=== PATIENT | male | born 1960 | race Caucasian/White ===

== ENCOUNTER 2016-09-10 18:43 | Inpatient (IN) | payer OTHER ==
[~2016-09-10] VITALS: Ht 185.4 cm; Wt 103.4 kg
[~2016-09-10 18:43] MED LIST: CARV12.52 PO; FENO160T14 PO; FLAX100010 PO; FURO-128 PO; HYDR-3825 PO; LISI10TA PO; MULT-666 PO; OMEP20TA86 PO; SIMV20TA4 PO; SPIR25TA3 PO; SYMINH INH; WARF5TAB7 PO; [UNRECOGNIZED DRUG - OTHER] PO
[2016-09-10 18:49] VITALS: BP 87/53; PULSE 145; RESP 27; O2SAT 99
--- NOTE | 2016-09-10 19:05 | ED.REPORT ---
HPI-Chest Pain 40 and Over Date of Service Sep 10, 2016 ED Provider: Moses Tolliver DO Pt is a 56 y.o. male with a hx of A-fib/flutter, ablation, CHF, and COPD who presents to the ED c/o palpitations onset 4 days ago. He reports associated bilateral leg swelling and worsening SOB. Pt had an ablation performed on for his chronic A-fib/flutter and reports that he has not been in A-fib since then. He had an echo performed by Dr. Montilla on 07/13/16 which reported a left ventricle ejection fraction estimated at 50-55%, which was improved compared to a prior exam. Pt is on Warfarin. Nursing Notes Stated Complaint: DIFFICULTY BREATHING, HEART FEELS OUT OF RHYTHM Chief Complaint: Chest Pain Nursing Notes Reviewed: Yes Allergies: Coded Allergies: No Known Allergies (Verified Allergy, Unknown, 03/26/16) Scheduled Ascorbic Acid (Vitamin C) 250 Mg Tab.chew 250 MG PO DAILY Atorvastatin (Lipitor) 20 Mg Tablet 20 MG PO HS Budesonide/Formoterol 160-4.5 mcg Inh (Symbicort 160-4.5 mcg Inh) 120 Puff Inhaler 2 PUFFS INH BID Carvedilol (Carvedilol) 12.5 Mg Tablet 18.75 MG PO BID Fenofibrate (Fenofibrate) 160 Mg Tablet 160 MG PO DAILYWD TAKES IN AM WORKS SCIENTIFIC ILLUSTRATOR Flaxseed Oil (Higden-3 Flaxseed Oil) 1,000 Mg Capsule 2,000 MG PO DAILYWM Furosemide (Lasix) 40 Mg Tablet 40 MG PO QAM TAKES IN PM WORKS SCIENTIFIC ILLUSTRATOR Lisinopril (Lisinopril) 10 Mg Tablet 10 MG PO BID Multivitamin (Once Daily) 1 Each Tablet 1 TAB PO DAILY Omeprazole (Omeprazole) 20 Mg Tablet.dr 20 MG PO QAM TAKES IN PM WORKS SCIENTIFIC ILLUSTRATOR Spironolactone (Spironolactone) 25 Mg Tablet 25 MG PO MORNING TAKES IN PM WORKS SCIENTIFIC ILLUSTRATOR Warfarin Sodium (Warfarin Sodium) 2.5 Mg Tablet 1.25 MG PO Mo,Th Warfarin Sodium (Warfarin Sodium) 2.5 Mg Tablet 2.5 MG PO Tu,We,Fr,Sa,Bruno General Time Seen by MD: 19:05 Chief Complaint Other (Palpitations) Hx Obtained From: Patient Arrived By: Walk-in Sudden in Onset?: Yes Onset Occurred: 4 days ago Symptom Duration: Since onset Severity: Current: No pain currently Past Medical History Past Medical History Notes: [employer]: [place] Past Medical History History of congestive heart failure with EF as low as 20% in May 2013, 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 Patient had marked echocardiographic improvement if improving to 45% subsequent to medical management History of atrial flutter/fibrillation chronic" with warfarin History of COPD History hyperlipidemia Reports: COPD, Congestive heart failure, Hypertension Past Surgical History Meniscus tear repaired Ablation Smoking History Current Every Day Smoker Social History Alcohol Use: "Social" Drug Use: Denies drug use Ambulatory Status Independent Review of Systems Constitutional: Denies: Chills, Fever Respiratory: Reports: Shortness of breath Cardiovascular: Reports: Palpitations, Denies: Chest pain GI: Denies: Nausea, Vomiting Musculoskeletal: Reports: Extremity swelling (Bilateral legs) Complete sys rev & neg: except as marked. Physical Exam Initial Vital Signs Vital Signs (First) Date Time Temp Pulse Resp B/P Pulse Ox O2 Delivery O2 Flow Rate FiO2 09/10/16 18:49 36.8 145 27 87/53 99 Room Air 09/10/16 21:08 2 Initial VS: Reviewed Head / Eyes: Atraumatic, Normocephalic Extremities: Vascular intact, Neuro intact Skin: Warm, Dry, No cyanosis Neurologic: Alert, Oriented, Nonfocal Psychiatric: Mood/affect normal, Behavior normal, Normal thought content General/Constitutional: Awake, Alert, No acute distress, Not toxic appearing Appearance / Presentation: Positive: Obese Respiratory / Chest: Atraumatic Tachypneic Heart Rate / Rhythm: Positive: Irreg irregular rhythm, Tachycardia Lower Ext Edema: Positive: Ankle, Knee, Pitting (Bilateral) Neck: Atraumatic, Supple, No JVD Interpretation & Diagnostics Lab Results Interpretation Result Diagram: 09/11/16 0428 09/11/16 0428 Test 09/10/16 19:05 09/10/16 20:05 Neutrophils (%) (Auto) 74.9% (40-74) Lymphocytes (%) (Auto) 15.9% (14-46) Monocytes (%) (Auto) 7.0% (4-12) Eosinophils (%) (Auto) 1.3% (0-5) Basophils (%) (Auto) 0.4% (0-3) Total Bilirubin 0.6mg/dL (0.0-1.2) Aspartate Amino Transf (AST/SGOT) 26U/L (0-50) Alanine Aminotransferase (ALT/SGPT) 42U/L (0-44) Alkaline Phosphatase 54U/L (25-150) Pro-B-Type Natriuretic Peptide 5021pg/mL (0-210) Total Protein 7.1g/dL (6.4-8.4) Albumin 3.9g/dL (3.4-5.0) Thyroid Stimulating Hormone (TSH) 1.270uIU/mL (0.450-4.500) Hold Wheeler Top Tube Received (Received) Hold Urine Received (Received) ECG Interpretation ECG Interpretation: Different from prior which showed sinus rhythm Persistant low voltage Time: 18:56 Interpreted by: ED physician Rhythm / Conduction: Atrial fib with RVR (rate of 157) X-Ray Chest Interpretation Chest Xray Interpretation: IMPRESSION: No acute pulmonary process. Dictated by: Jody Valdez M.D. on 09/10/2016 at 19:35 Approved by: Jody Valdez M.D. on 09/10/2016 at 19:35 Re-Eval/Medical Decision Med Decision/Clinical Course 56-year-old male history of atrial flutter status post ablation. He presents in A. fib with rapid ventricular response. He was having significant distress due to the dyspnea was causing. I also think that he was having an acute exacerbation of his chronic COPD. Either way he was given a neb treatment steroids. He was initiated with IV Cardizem his rate came down. Overall he looked and felt much better. He was anticoagulated however he thinks his symptoms been going on for 2 weeks and I cannot prove that his INR was therapeutic last week so therefore I do not feel that emergent cardioversion was indicated at this time. He will be admitted to the PCU for further care and disposition. Source of Hx: Old records Time of Eval: 19:32 Re-Evaluation/Progress Note: Evaluated last meal time as 1230 today. Time of Eval: 21:02 Patient Status: Condition improved Re-Evaluation/Progress Note: Pt rechecked. Pt is looking improved. Pt is experiencing dyspnea with faint expiratory wheezes consistant with his COPD. Discussed need for admit, pt understands and agrees with plan. Consultation : Referral / Consult Name: Sandip Barros MD Consulted With: Hospitalist Call Returned at: 21:03 Bookbinding Machine Operator: Will see patient, Agrees with eval, Agrees with plan, Accepts admit Note: Dicussed pt conditon, accepts admit Counseled Regarding: Diagnosis, Lab results, Need for admission Discharge & Departure Primary Impression: Atrial fibrillation with rapid ventricular response Additional Impression: COPD exacerbation Disposition: ADMITTED TO HOSPITAL Discharge Condition All VS Reviewed: Yes Condition: Improved Referrals: Lalit Rivas DO (PCP) Crit Care Except Billable Proc Time Spent: 30-74 minutes Services Performed: Patient management by me, Time spent at bedside, Reviewing test results, Reviewing imaging, Discussing patient care, Documentation in record, Time with fam/surrogate Scribe Attestation Portions of this note were transcribed by Nimo Sanchez. I, Dr. Tolliver personally performed the history, physical exam and medical decision-making; I reviewed and confirmed the accuracy of the information in the transcribed note. Signed by : Thanh Zimmer, 09/10/16 and 2102. copies to: Lalit Rivas DO; Inés Montilla MD; Jonnathan Sevilla MD, Todd P DO Sep 10, 2016 19:05 NIMO SANCHEZ Sep 10, 2016 19:38 Albumin 3.9g/dL (3.4-5.0) Hold Wheeler Top Tube Received (Received) Hold Urine Received (Received) ECG Interpretation ECG Interpretation: Different from prior which showed sinus rhythm Persistant low voltage Time: 18:56 Interpreted by: ED physician Rhythm / Conduction: Atrial fib with RVR (rate of 157) X-Ray Chest Interpretation Chest Xray Interpretation: IMPRESSION: No acute pulmonary process. Dictated by: Jody Valdez M.D. on 09/10/2016 at 19:35 Approved by: Jody Valdez M.D. on 09/10/2016 at 19:35 Re-Eval/Medical Decision Source of Hx: Old records Time of Eval: 19:32 Re-Evaluation/Progress Note: Evaluated last meal time as 1230 today. Time of Eval: 21:02 Patient Status: Condition improved Re-Evaluation/Progress Note: Pt rechecked. Pt is looking improved. Pt is experiencing dyspnea with faint expiratory wheezes consistant with his COPD. Discussed need for admit, pt understands and agrees with plan. Consultation : Referral / Consult Name: Sandip Barros MD Consulted With: Hospitalist Call Returned at: 21:03 Bookbinding Machine Operator: Will see patient, Agrees with eval, Agrees with plan, Accepts admit Note: Dicussed pt conditon, accepts admit Counseled Regarding: Diagnosis, Lab results, Need for admission Discharge & Departure Primary Impression: Atrial fibrillation with rapid ventricular response Additional Impression: COPD exacerbation Disposition: ADMITTED TO HOSPITAL Discharge Condition All VS Reviewed: Yes Condition: Improved Referrals: Lalit Rivas DO (PCP) Crit Care Except Billable Proc Time Spent: 30-74 minutes Services Performed: Patient management by me, Time spent at bedside, Reviewing test results, Reviewing imaging, Discussing patient care, Documentation in record, Time with fam/surrogate Scribe Attestation Portions of this note were transcribed by Nimo Sanchez. I, Dr. Tolliver personally performed the history, physical exam and medical decision-making; I reviewed and confirmed the accuracy of the information in the transcribed note. Signed by : Thanh Zimmer, 09/10/16 and 2103. copies to: Lalit Rivas DO; Inés Montilla MD; Jonnathan Sevilla MD, Todd P DO Sep 10, 2016 19:05 NIMO SANCHEZ Sep 10, 2016 19:38
[2016-09-10 19:22] LABS: BASOPHILS % (AUTO) 0.4 % (0-3); EOSINOPHILS % (AUTO) 1.3 % (0-5); Mean Corpuscular Hemoglobin 32.7 pg (27.0-35.0); Mean Corpuscular Volume 96.6 fL (81-100); NEUTROPHILS % (AUTO) 74.9 % (40-74); Platelet Count 190 bil/L (150-400)
[2016-09-10] MEDS ORDERED: Diltiazem 5 mg/mL 5 mL Inj IVPUSH ONE (19:35)
[2016-09-10] MEDS ORDERED: 0.9% Sodium Chloride 500 ML IV ONE (19:35)
--- NOTE | 2016-09-10 19:38 | DRSVH ---
PROCEDURE: X-RAY CHEST ONE VIEW, PORTABLE ([id number]) INDICATIONS: cp TECHNIQUE: One view of the chest was acquired. COMPARISON: [facility], CR, XR CHEST 1VW (PORTABLE), 03/13/2016, 23:31. FINDINGS: Surgical changes and devices: None. Lungs and pleura: No pleural effusions or pneumothorax. Lungs are clear. Mediastinum: Mediastinal contours appear normal. Heart size is normal. Bones and chest wall: No suspicious bony lesions. Overlying soft tissues appear unremarkable. IMPRESSION: No acute pulmonary process. Dictated by: Jody Valdez M.D. on 09/10/2016 at 19:35 Approved by: Jody Valdez M.D. on 09/10/2016 at 19:35
[2016-09-10 19:40] LABS: INR 3.45 ratio
[2016-09-10 19:44] LABS: Magnesium 1.4 mg/dL (1.6-2.6)
[2016-09-10] MEDS: Diltiazem Inj 125 MG in 0.9% Sodium Chloride 100 ML, Pharmacy To Mix 1 EA IV SCH (20:03)
[2016-09-10 20:10] LABS: TROPONIN T < 0.010 ug/L (0.0-0.011)
[2016-09-10] MEDS ORDERED: Albuterol-Ipratropium 3 mL Inhalation Solution NEB ONE (20:55)
[2016-09-10] MEDS ORDERED: Alum-Mag Hydrox-Simeth 30 mL Suspension PO PRN (21:05)
[2016-09-10] MEDS ORDERED: MethylprednisoLONE Sodium Succinate 62.5 mg/mL 2 mL Inj IVPUSH ONE (21:05)
[2016-09-10] MEDS ORDERED: Ondansetron 2 mg/mL 2 mL Inj IVPUSH PRN (21:05)
[2016-09-10] MEDS ORDERED: Polyethylene Glycol (PEG) 17 Gm Powder PO PRN (21:05)
[2016-09-10 21:08] VITALS: PULSE 98; RESP 14; O2SAT 93
[2016-09-10] MEDS ORDERED: ATOR20TA PO (22:04)
[2016-09-10] MEDS ORDERED: WARF2.5T82 PO (22:06)
[2016-09-10 22:07] VITALS: BP 115/80; PULSE 99; RESP 21; O2SAT 96
[2016-09-10 22:47] VITALS: BP 92/77; PULSE 101; O2SAT 94
[2016-09-10 22:55] VITALS: PULSE 97
--- NOTE | 2016-09-10 23:24 | PCM.HPMED ---
Subjective Date of Service Sep 10, 2016 Primary Provider: Admitting Physician: Primary Care Physician: Lawrence Garcia DO Attending Physician: Admit Status: From the Emergency Department, Full Admit, [facility] Telemetry Chief Complaint: Palpitations History of Present Illness: Vish Camarena is a 56 y.o. male with Chronic Atrial fibrillation s/p ablation, Chronic heart failure with systolic dysfunction and COPD (ongoing smoker) who presents to [facility] emergency department complaining of palpitations. Patient states the palpitations has been ongoing for a least a month but within the last 4 days gotten worse. Associated with bilateral ankle swelling and worsening dyspnea. He denies any coughing or orthopnea. Denies any chest pain. He also noticed general weakness and lack on energy. He is compliant with his medications including Coumadin. Pt had an ablation performed on 03/26/16 for his chronic A-fib/flutter and reports that he has not been doing fine since then. He continues to smoke on a daily basis but has been cutting down. Case discussed with Dr Tollievr, Cardizem drip was initiated with good effect. Plans to admit to continue rate control. No indications for electrical cardioversion. Review of Systems: Pertinent positives as noted in HPI. All other systems were reviewed and are negative Allergies Coded Allergies: No Known Allergies (Verified Allergy, Unknown, 03/26/16) Home Medications From Vish Mcgill [phone] 1960 09/05/2016 08:15 AM Page: 06/19 atorvastatin 20 mg tablet take 1 tablet by oral route every day Coreg 12.5 mg tablet take 1.5 tablet by oral route 2 times every day with food fenofibrate 160 mg tablet take 1 tablet by oral route every day flaxseed 1,000 mg capsule 2 capsules daily with meal furosemide 40 mg tablet TAKE ONE TABLET BY MOUTH EVERY DAY ZESTRIL 10 MG TABLET TAKE ONE TABLET BY MOUTH TWICE A DAY omeprazole 20 mg capsule,delayed release take 1 capsule by oral route every day before a meal spironolactone 25 mg tablet TAKE ONE TABLET BY MOUTH DAILY Supplements Imune Boost Vit C Supplements Multi Vit SYMBICORT 160-4.5 MCG INHALER INHALE TWO PUFFS BY MOUTH TWO TIMES A DAY IN THE MORNING AND EVENING warfarin 2.5 mg tablet take 0.5 tablet (1.25mg) Mondays and and 1 tablet (2.5mg) all other days of the week PMH Atrial fibrillation s/p Cardioversion Tricuspid regurgitation COPD Chronic heart failure with Cardiomyopathy EF 20-25% Psoriasis Nicotine dependence ongoing cigarette smoker GERD Hyperlipidemia . Surgical History Hip ORIF surgery Ablation procedure Family History Father has dementia, Parkinson and Hypertension Mother is Diabetic and Coronary artery disease Social History Hx Alcohol Use: No Hx Substance Use: No Hx Tobacco Use: Yes Smoking Status: Current Every Day Smoker Living Arrangement: with Family Exam Vital Signs Vital Sign - Last Date Time Temp Pulse Resp B/P Pulse Ox O2 Delivery O2 Flow Rate FiO2 09/10/16 18:49 36.8 145 27 87/53 99 Room Air Exam General: Alert, Oriented X3, Cooperative, No acute Distress Eyes: PERRLA, Scleral Anicteric Mouth: Mouth Normal, Mucous Membranes Moist/Teller Neck: Supple, no Thyromegaly, trachea central. Chest & Lungs: Clear to auscultation & percussion, No adventitious breath sounds, no crackles, no wheeze Cardiovascular: Normal S1, Normal S2, No Murmurs/Rubs/Gallops, Irregularly irregular rhythm, (No JVD, no peripheral edema) Pulses: Radial (present and equal), Dorsalis Pedi (present and equal) Abdomen: Soft, Non-tender, Non-distended, Normoactive bowel tones. Musculoskeletal: Unremarkable. Normal range of motion, no swollen or erythematous joints Extremities: some ankle edema bilaterally, no cyanosis, no clubbing. Skin: No rashes. Warm and dry, no erythematous areas Neurological: Grossly neurologically intact, Normal Speech, Sensation Intact Lymphatic: Lymph nodes Cervical and Axillary not palpable. Lab and Diagnostics Labs Laboratory Tests Test 09/10/16 19:05 09/10/16 20:05 White Blood Count 10.9th/mm3 (3.8-10.1) Red Blood Count 4.71mil/mm3 (4.40-5.80) Hemoglobin 15.4g/dL (13.8-17.2) Hematocrit 45.5% (41.0-50.0) Mean Corpuscular Volume 96.6fL (81-100) Mean Corpuscular Hemoglobin 32.7pg (27.0-35.0) Mean Corpuscular Hemoglobin Concent 33.8% (32.0-37.0) Red Cell Distribution Width 12.6% (12.3-15.4) Platelet Count 190bil/L (150-400) Neutrophils (%) (Auto) 74.9% (40-74) Lymphocytes (%) (Auto) 15.9% (14-46) Monocytes (%) (Auto) 7.0% (4-12) Eosinophils (%) (Auto) 1.3% (0-5) Basophils (%) (Auto) 0.4% (0-3) Prothrombin Time 37.9sec (8.1-12.5) Prothromb Time International Ratio 3.45ratio Sodium Level 138mEq/L (134-144) Potassium Level 4.0mEq/L (3.5-5.2) Chloride Level 97mEq/L (97-108) Carbon Dioxide Level 28mmol/L (18-29) Blood Urea Nitrogen 19mg/dL (6-24) Creatinine 1.01mg/dL (0.76-1.27) Estimat Glomerular Filtration Rate 81mL/min (>59) Glucose Level 149mg/dL (60-99) Calcium Level 9.2mg/dL (8.5-10.1) Magnesium Level 1.4mg/dL (1.6-2.6) Total Bilirubin 0.6mg/dL (0.0-1.2) Aspartate Amino Transf (AST/SGOT) 26U/L (0-50) Alanine Aminotransferase (ALT/SGPT) 42U/L (0-44) Alkaline Phosphatase 54U/L (25-150) Troponin T < 0.010ug/L (0.0-0.011) Pro-B-Type Natriuretic Peptide 5021pg/mL (0-210) Total Protein 7.1g/dL (6.4-8.4) Albumin 3.9g/dL (3.4-5.0) Hold Wheeler Top Tube Received (Received) Hold Urine Received (Received) Result Diagram: 09/10/[id number] X-Rays, CTs and MRIs X-RAY CHEST ONE VIEW, PORTABLE 09/10 IMPRESSION: No acute pulmonary process. Dictated by: Jody Valdez M.D. on 09/10/2016 at 19:35 Approved by: Jody Valdez M.D. on 09/10/2016 at 19:35 Assessment & Plan Vish Camarena is a 56 y.o. male with Chronic Atrial fibrillation s/p ablation, Chronic heart failure with systolic dysfunction and COPD (ongoing smoker) who presents to [facility] emergency department complaining of palpitations 1. Atrial fibrillation with rapid ventricular response with chronic anticoagulations. Present on admission Previously on Digoxin but was held as it was ineffective. Currently on Coreg for rate control. No history of thyroid problems and currently without any anginal symptoms. No prior Strokes with [id number] score 2 currently on Coumadin. - monitor on telemetry - continuing Cardizem drip for rate control - continuing Coreg PO, monitor for hypotension - Pharmacy to dose Coumadin (INR >3 will be held tonight) - checking TSH - I think Cardiology will need to be consulted in the morning to review medications 2. Chronic systolic Heart failure with Cardiomyopathy No evidence of fluid overload or decompensation. I think the ankle swelling does not represent failure - continuing Aldactone 25 mg daily and Furosemide 40 mg daily - complete echo requested to monitor any changes 3. Hypertension Presumed stable - continued Lisinopril 10 mg bid 4 Dyslipidemia Presumed stable - continue Atorvastatin 20 mg daily and Fenofibrate 5 GERD - Omeprazole 20 mg daily 6 Chronic Obstructive Pulmonary Disease - No acute exacerbation no coughing or sputum changes however still smokes on a daily basis - recommend yearly influenza vaccination - continue Symbicort 160/4.5 mcg inhaler 2 puffs bid - DuoNeb nebs as needed 7 Nicotine dependence with ongoing cigarette smoking cessation discussed and encouraged - Nicotine patch upon request - Acetaminophen as needed for mild pain/fever/headache - Bowel regimen as needed - Antiemetic as needed Patient admitted under inpatient status with expected length of stay > 2 midnights for severity of present symptoms, complexities of treatment plan and risk for adverse event . Resuscitation Status: CPR: Attempt Resuscitation Sandip Barros MD Sep 10, 2016 21:07
[2016-09-10] MEDS ORDERED: Mag Sulf 4 Gm/100 mL IV Premix (Mag < 1.6 & Creat < 2) IV ONE (23:45)
[2016-09-11] VITALS (17 sets, daily range): BP systolic 104–121; BP diastolic 64–81; PULSE 62–98; RESP 14–26; O2SAT 91–96
[2016-09-11] MEDS ORDERED: Heparin 5,000 Unit/mL Inj SUBQ SCH (00:30)
--- NOTE | 2016-09-11 00:43 | NUR ---
admit note pt to floor from ED quezem gtt running at 5mg/hr, able to transfer to standing scale then to bed, pt a little weak per his report but feels better then when he got here.pt denies any nausea, on 3L NC, mag 1.4 received order for mag rider jovi, taking medications home with her, orientated pt to call light, bed and room, pt voiding per urinal, tele AFIB/AFLUTTER rate 80-90s BP stable.
[2016-09-11 04:54] LABS: Mean Corpuscular Hemoglobin 32.6 pg (27.0-35.0); Mean Corpuscular Volume 96.9 fL (81-100)
[2016-09-11 05:11] LABS: INR 2.64 ratio
[2016-09-11 05:19] LABS: Magnesium 2.7 mg/dL (1.6-2.6)
--- NOTE | 2016-09-11 06:40 | NUR ---
tele pt on cardizem gtt at 5mg/hr rate while sleeping 70-80s with activity up to low 100s.
[2016-09-11] MEDS ORDERED: FLAX100038 PO (09:11)
[2016-09-11] MEDS ORDERED: WARF2.5T82 PO (09:13)
[2016-09-11] MEDS ORDERED: ASCO250T7 PO (09:21)
[2016-09-11] MEDS: Albuterol-Ipratropium 3 mL Inhalation Solution NEB PRN ×2 (09:42→20:50)
--- NOTE | 2016-09-11 11:05 | NUR ---
Social Work: Screening Data: Pt is a 56 y/o male admitted for AFIB with RVR, COPD exacerbation. Pt's PCP is Dr Garcia, pt's insurance is [employer]. EMR reviewed. Readmit score not listed. No d/c planning needs anticipated at this time. FILAMENT SHAPER will continue to follow if needs arise. Assessment: Pt who is independent at baseline. Plan: Pt will d/c home via POV when medically stable. No d/c planning needs anticipated at this time. FILAMENT SHAPER will continue to follow if needs arise. LEEROY Kenyon
[2016-09-11] MEDS: Diltiazem Inj 125 MG in 0.9% Sodium Chloride 100 ML, Pharmacy To Mix 1 EA IV SCH (12:11)
--- NOTE | 2016-09-11 12:27 | DRSVH ---
[facility] [address] [place] [address] Echocardiogram Report Name: MARCO ADEN EStudy Date : 09/11/2016 Height: 73 in Hospital Exam Location: [facility] Weight: 227 lb Gender: Male BSA: 2.3 m2 : 1960 Age: 56 yrs BP: 109/64 mmHg Reason For Study: Atrial fibrillation Ordering Physician: Performed By: Tena Long Referring Physician: Lawrence Garcia Interpretation Summary The left ventricle is normal in size. Left ventricular systolic function is mildly reduced. The ejection fraction is estimated to be 45-50%. There has been no significant change since the previous study. There is basal inferior wall akinesis. There is mid inferior wall hypokinesis. The right ventricle is normal in size and function. The right ventricular systolic pressure is estimated at 46 mmHg assuming a right atrial pressure of 15 mm Hg. Compared to the prior echo exam, there has been an increase in the severity of pulmonary hypertension. The left atrium is severely dilated. The right atrium is moderately dilated. There is no significant valvular heart disease. The aortic root is normal size. Procedure: A two-dimensional transthoracic echocardiogram with color flow and Doppler was performed. The study quality was technically good. Comparison is made with the echocardiogram of 07-13-16. The patient was in atrial fibrillation with heart rates between 96-101 bpm during the exam. Left Ventricle: The left ventricle is normal in size. Left ventricular wall thickness is at the upper limits of normal. Left ventricular systolic function is mildly reduced. The ejection fraction is estimated to be 45-50%. There has been no significant change since the previous study. There is basal inferior wall akinesis. There is mid inferior wall hypokinesis. Diastolic function could not be accurately assessed due to atrial fibrillation. Right Ventricle: The right ventricle is normal in size and function. Atria: The left atrium is severely dilated. The right atrium is moderately dilated. The interatrial septum is intact with no evidence for an atrial septal defect. Mitral Valve: The mitral valve leaflets appear mildly thickened, but open well. There is trace mitral regurgitation. Aortic Valve: The aortic valve opens well. There is trace aortic regurgitation. Tricuspid Valve: The tricuspid valve is normal in structure and function. There is mild tricuspid regurgitation. The right ventricular systolic pressure is estimated at 46 mmHg assuming a right atrial pressure of 15 mm Hg. Compared to the prior echo exam, there has been an increase in the severity of pulmonary hypertension. Pulmonic Valve: The pulmonic valve is not well seen, but is grossly normal. There is mild pulmonic regurgitation. There is no significant valvular heart disease. Great Vessels: The aortic root is normal size. The dimensions of the ascending aorta are normal. The IVC is dilated (diameter is greater than 2.1 cm) and it collapses less than 50% with a sniff. This suggests a high right atrial pressure of 15 mm Hg. Pericardium/ Pleura There is no pericardial effusion. There is no pleural effusion. MMode/2D Measurements & Calculations LVIDd: 5.1 cm LA dimension: 4.8 cm RA long axis: 5.9 cm Ao root diam LVIDs: 4.3 cm FS: 16.7 % LA A2 area: 36.1 cm RA area: 26.5 cm Aortic Jxn: 3.0 cm IVSd: 1.1 cm LA A4 area: 29.0 cm RA vol: 100.6 ml asc Aorta Diam LVPWd: 1.1 cm LA length (vol) RA : 44.3 ml/m RVDd major: 5.7 cm Ao Arch Diam (Prox LA vol: 146.6 ml Trans): 3.0 cm LA vol index IVC diam: 2.6 cm EDV(MOD-sp2) LV burr. diameter/BSA LV sys. diameter/BSA RVD1 (basal) : 100.8 ml (cm/m^2): 2.3 (cm/m^2): 1.9 : 4.5 cm RVD2 (mid) : 4.3 cm Doppler Measurements & Calculations Ao V2 max MV P1/2t: 62.9 msec Med Peak E' Hai TR max hai : 114.4 cm/sec : 262.7 cm/sec Ao max PG Lat Peak E' Hai TR max PG : 5.2 mmHg : 27.6 mmHg Ao mean PG PA V2 max : 3.0 mmHg : 89.9 cm/sec PA mean PG PA Accel Time : 0.09 sec MV V2 mean MV P1/2t max hai Ao V2 mean PA V2 mean : 58.3 cm/sec : 81.5 cm/sec : 63.0 cm/sec MV mean PG Ao V2 VTI: 22.6 cm MVA(P1/2t): 3.5 cm2 MV V2 VTI : 16.9 cm Reading Physician:HAYDER
--- NOTE | 2016-09-11 13:21 | CONS ---
[address] [address] CONSULTATION REPORT PATIENT: MARCO ADEN : 1960 MR#: [id number] ADMIT: 09/10/2016 JOB ID: [id number] DATE OF SERVICE: 09/11/2016 REQUESTING PHYSICIAN: Tomas Bowie MD REASON FOR EVALUATION: Atrial flutter. HISTORY: The patient is a 56-year-old male with history of COPD, hypertension, and hyperlipidemia. He has recurrent atrial flutter requiring multiple emergency department visits and cardioversion with consequent tachycardia mediated cardiomyopathy. He underwent atrial flutter ablation on March 26, 2016. The patient was in his usual state of health until three weeks ago when he started not feeling well. He became short of breath in the past three days. He has lack of energy and general weakness. He denies any fever, cough, orthopnea, or PND. PAST MEDICAL HISTORY: 1. COPD. 2. Hypertension. 3. Hypercholesterolemia. 4. Gastroesophageal reflux disease. PAST SURGICAL HISTORY: Right hip surgery. HOME MEDICATIONS: 1. Warfarin. 2. Atorvastatin 20 mg daily. 3. Carvedilol 12.5 mg 1.5 tablets b.i.d. 4. Fenofibrate 160 mg daily. 5. Furosemide 40 mg daily. 6. Lisinopril 10 mg b.i.d. 7. Omeprazole 20 mg daily. 8. Spironolactone 25 mg daily. 9. Symbicort 2 puffs b.i.d. SOCIAL HISTORY: He started smoking when he was 17 years old. He smoked up to one pack per day in the past. He currently smokes about five cigarettes per day. He quit drinking a while ago. FAMILY HISTORY: His mother is diabetic and has heart condition. His father has dementia, Parkinson's, and hypertension. REVIEW OF SYSTEMS: All 10 systems are reviewed and noncontributory. PHYSICAL EXAMINATION: Reveals a pleasant, middle-aged male appearing in no acute distress. Temperature is 36.7. Blood pressure is 104/71. Pulse 98. Body weight is 106 kg. Head and face have normal configuration. Nonicteric sclerae. Moist mucosa. Neck supple. No jugular venous distention or carotid bruits. Chest: Normal expansion. Lungs are clear to auscultation. Heart: The first heart sound is variable. Second heart sound is normal. No murmur. Abdomen: Soft, nontender and without hepatosplenomegaly. Back: No CVA tenderness. Extremities: No clubbing, cyanosis, or edema. Peripheral pulses are equal bilaterally. Neurologic: Grossly intact. DIAGNOSTIC DATA: Tele monitor showed atrial flutter with rapid ventricular response. Blood tests show hemoglobin 14.7, WBC 8.9, platelet 182. Sodium 140, potassium 4.4, chloride 99, bicarb 25, BUN 18, creatinine 0.98, glucose 192. Troponin T less than 0.01. TSH 1.27. IMPRESSION: 1. Recurrent atrial flutter with uncontrolled ventricular response. 2. Status post atrial flutter ablation on March 26, 2016. 3. History of tachycardia-mediated cardiomyopathy. 4. Chronic obstructive pulmonary disease. 5. Nicotine addiction. 6. Hypertension. 7. Hypercholesterolemia. PLAN: In view of this is the first episode of recurrent atrial flutter since the atrial flutter ablation, I will perform synchronous cardioversion. The risks and benefits of procedure have been explained to the patient. He understands and agrees to proceed with the procedure. After he returns to sinus rhythm, the patient will follow with Dr. Sanchez as an outpatient. The patient has therapeutic INR. MTDD
--- NOTE | 2016-09-11 13:52 | PCM.PHAPRO ---
Progress Date of Service: Sep 11, 2016 Palpitations INR = 2.64, HCT = 43.7, PLTS 182. Pt continues on warfarin therapy for afib, goal INR 2-3. Will give warfarin 2.5 mg PO tonight, pt's home dose. INRs ordered. Pharmacy will follow this pt' s warfarin therapy. Sep 11-Aug 3.45 2.64 -0.81 UNK 2.5 MG Y Y Delores Torres PharmD Sep 11, 2016 13:52
--- NOTE | 2016-09-11 15:23 | NUR ---
Cardioversion Pt. was transferred in a WC to [facility] at 1523 for cardioversion. His was aware of the procedure. Informed consent was signed and placed in chart. bioinformatics research technician was notified. Report given to [facility] nurse, Juan Jose Abbott RN. Addendum: 09/11/16 at 1720 by MARIA GUADALUPE BLAKELY RN Pt. transferred back to [facility] at 1710. He was alert and oriented on arrival. Telemetry monitoring resumed. Pt. in SR and HR 70s. He denied discomfort except for mild skin irritation (redness noted) on his chest from the cardioversion patch. Call light was placed within reach.
[2016-09-11] MEDS ORDERED: Methohexital 10 mg/mL 50 mL Inj ONE (15:39)
[2016-09-11] MEDS ORDERED: Furosemide 10 mg/mL 2 mL Inj IVPUSH ONE (16:40)
--- NOTE | 2016-09-11 16:49 | PCM.PNMED ---
Subjective Date of Service Sep 11, 2016 Subjective 56 y.o. male with Chronic Atrial fibrillation s/p ablation, Chronic heart failure with systolic dysfunction and COPD (ongoing smoker) who presents to [facility] emergency department complaining of palpitations, dyspnea and increased pedal edema. Today he states he feels somewhat better. Rate is now well controlled. Breathing still seems labored. Exam Vital Signs Vital Sign - Last Date Time Temp Pulse Resp B/P Pulse Ox O2 Delivery O2 Flow Rate FiO2 09/11/16 16:20 68 16 112/73 92 Nasal Cannula 4.00 09/11/16 12:30 36.7 Intake and Output 09/10/16 09/10/16 09/11/16 Cumulative From/Thru 15:00 23:00 07:00 09/10/16 18:49 - 09/11/16 06:15 Intake Total 500 ml 1445 ml 1945 ml Balance 500 ml 1445 ml 1945 ml Intake Oral 650 ml 650 ml IV Total 500 ml 795 ml 1295 ml Exam General: Middle-aged man mild tachypnea but no acute distress HEENT: sclerae anicteric, oral mucosa moist Neck: JVD approximately 4 cm Chest: Bibasilar crackles, no wheezes Cardiac: S1S2, irregular, no murmur Abdomen: BS normal, non-tender Extremities: 1+ edema Neuro: A&O, cranial nerves symmetric, motor strength and coordination normal IVs and Medications Medications Reviewed: Medications were reviewed in detail Lab and Diagnostics Result Diagram: 09/11/1642709/11/16427 X-Rays, CTs and MRIs PROCEDURE: X-RAY CHEST ONE VIEW, PORTABLE ([id number]) IMPRESSION: No acute pulmonary process. Dictated by: Jody Valdez M.D. on 09/10/2016 at 19:35 . 12-lead ECG 09/10/16 18:43 atrial fib flutter rate 140. No acute ischemic changes. Cardiac Echo Impressions Echocardiogram Report Name: VISH ADEN Study Date : 09/11/2016 Interpretation Summary The left ventricle is normal in size. Left ventricular systolic function is mildly reduced. The ejection fraction is estimated to be 45-50%. There has been no significant change since the previous study. There is basal inferior wall akinesis. There is mid inferior wall hypokinesis. The right ventricle is normal in size and function. The right ventricular systolic pressure is estimated at 46 mmHg assuming a right atrial pressure of 15 mm Hg. Compared to the prior echo exam, there has been an increase in the severity of pulmonary hypertension. The left atrium is severely dilated. The right atrium is moderately dilated. There is no significant valvular heart disease. The aortic root is normal size. . Assessment & Plan Vish Aden is a 56 y.o. male with Chronic Atrial fibrillation s/p ablation, Chronic heart failure with systolic dysfunction and COPD (ongoing smoker) who presents to [facility] emergency department complaining of palpitations Acute and/or high-risk problems: #. Atrial fibrillation with rapid ventricular response. Present on admission Previously on Digoxin but was held as it was ineffective. Currently on Coreg for rate control. [id number] score 2 currently on Coumadin. - monitor on telemetry - continuing Coreg PO, - Discontinue Cardizem drip for rate control - Cardiology consult to perform cardioversion this afternoon. #. Atrial fibrillation with anticoagulation excess. INR 3.45 on admission. - Pharmacy to dose Coumadin #. Acute on Chronic systolic Heart failure with Cardiomyopathy. Initially well oxygenated 99% on room air in emergency department. Now requiring 4 L nasal cannula with O2 saturations 91-92%. Pulmonary exam with bibasilar crackles and increased O2 requirement suggests acute diastolic heart failure related to atrial fibrillation. - Intravenous Lasix to achieve 2 L net diuresis -Then continue Aldactone 25 mg daily and Furosemide 40 mg daily # Chronic Obstructive Pulmonary Disease. No acute exacerbation no coughing or sputum changes however still smokes on a daily basis. - recommend yearly influenza vaccination - continue Symbicort 160/4.5 mcg inhaler 2 puffs bid - DuoNeb nebs as needed # SIRS due to Acute respiratory failure with hypoxia. Respiratory rate 27, heart rate 145, blood pressure 87/53 on admission. Subsequently with oxygen deficit. Likely multifactorial COPD and acute diastolic CHF with mild chronic systolic CHF. No evidence for acute infection or sepsis. - Treat heart failure and A. fib rate control - Continue oxygen support as needed - Telemetry monitoring Resolving, stable and/or chronic problems: #. Hypertension Presumed stable - continued Lisinopril 10 mg bid # Dyslipidemia Presumed stable - continue Atorvastatin 20 mg daily and Fenofibrate # GERD - Omeprazole 20 mg daily # Nicotine dependence with ongoing cigarette smoking cessation discussed and encouraged - Nicotine patch upon request - Acetaminophen as needed for mild pain/fever/headache - Bowel regimen as needed - Antiemetic as needed Patient admitted under inpatient status with expected length of stay > 2 midnights for atrial fibrillation rate control and treatment of acute diastolic congestive heart failure with hypoxia. Expect 1-2 days for rate control and diuresis. Plan to discharge home when oxygen deficit is resolved. . VTE Mechanical Devices: Intermittant Pneumatic CD Resuscitation Status: CPR: Attempt Resuscitation Time spent 40 minutes spent in patient assessment care coordination including review of ECG , chest x-ray and discussing data with financial services consultant. Tomas Bowie MD Sep 11, 2016 16:49
--- NOTE | 2016-09-11 17:20 | NUR ---
Pt transferred to [facility] room 2012, VSS, in NSR. Report and pt handoff given to Alison ANDERSON.
[2016-09-12 00:04] VITALS: BP 125/71; PULSE 85; RESP 22; O2SAT 94
[2016-09-12 03:29] VITALS: BP 117/70; PULSE 83; RESP 22; O2SAT 93
[2016-09-12 04:42] LABS: INR 2.38 ratio
--- NOTE | 2016-09-12 06:15 | NUR ---
HR post cardioversion pt has remained in SR mostly 70s, pt started on PO lopressor last night HR and BP tolerating. pt stating he is feeling good. denies any pain
[2016-09-12 07:30] VITALS: PULSE 82
[2016-09-12] MEDS ORDERED: Furosemide 10 mg/mL 4 mL Inj IVPUSH ONE (07:50)
[2016-09-12 08:03] VITALS: BP 121/77; PULSE 87; RESP 16; O2SAT 93
[2016-09-12 08:23] VITALS: PULSE 88; RESP 22; O2SAT 92
[2016-09-12] MEDS: Albuterol-Ipratropium 3 mL Inhalation Solution NEB PRN (08:23)
--- NOTE | 2016-09-12 09:03 | PCM.DICHF ---
CHF Discharge Instructions Date of Service: Sep 12, 2016 Dates of Hospitalization Date of Hospital Admission Sep 10, 2016 at 21:56 Date of Discharge: Sep 12, 2016 Providers Admitting Physician: Sandip Barros MD Primary Care Physician: Lawrence Garcia DO Attending Physician: Sandip Barros MD Diagnosis at Time of Discharge Diagnosis at time of discharge Atrial fibrillation with rapid ventricular response; acute diastolic congestive heart failure; COPD Problems: Labs Ejection Fraction Laboratory Tests Test Range/Units 09/10/16 19:05 09/11/16 04:28 09/11/16 20:10 Total Bilirubin 0.0-1.2 mg/dL 0.6 Aspartate Amino Transf (AST/SGOT) 0-50 U/L 26 Alanine Aminotransferase (ALT/SGPT) 0-44 U/L 42 Alkaline Phosphatase 25-150 U/L 54 Pro-B-Type Natriuretic Peptide 0-210 pg/mL 5021 Total Protein 6.4-8.4 g/dL 7.1 Albumin 3.4-5.0 g/dL 3.9 Thyroid Stimulating Hormone (TSH) 0.450-4.500 uIU/mL 1.270 Hold Wheeler Top Tube Received Received Sodium Level 134-144 mEq/L 140 Potassium Level 3.5-5.2 mEq/L 4.4 Chloride Level 97-108 mEq/L 99 Carbon Dioxide Level 18-29 mmol/L 25 Blood Urea Nitrogen 6-24 mg/dL 18 Creatinine 0.76-1.27 mg/dL 0.96 Estimat Glomerular Filtration Rate >59 mL/min 86 Glucose Level 60-99 mg/dL 192 Calcium Level 8.5-10.1 mg/dL 8.7 Magnesium Level 1.6-2.6 mg/dL 2.7 Troponin T 0.0-0.011 ug/L < 0.010 Discharge Medications Other Medication Instructions You have received instructions on the medications your physician has prescribed at discharge. A list of these medications has been provided to you. Keep this and a list of all current medications with you. Keep the dates when you received the Flu and Pneumococcal (Pneumonia) Vaccines. Last known date of receiving Flu Vaccine CARPENTRY SPECIALIST Last known date of receiving Pneumococcal (Pneumonia) Vaccine fall 2015 Diet CHF Discharge Diet: Low fat, Low Sodium Diet Instructions CHF Low Salt diet ( 2 grams or less sodium/day) Choose foods and drinks with low or no salt. Remove salt shaker from the table. Read Nutritional Facts labels. Weight Monitoring 1. Weigh yourself every day at the same time and write it down. 2. Take your weight log to your doctor visits. 3. Call your doctor if you gain 3-5 pounds over 2-3 days. 4. Your weight today is 227.96 lbs. Additional Instructions CHF Teaching Packet given and: No Smoking--Tobacco Use If you smoke, you are strongly encouraged to stop. If you have recently quit smoking, CONGRATULATIONS. For further information to stop smoking or to remain smoke-free, Follow Up Plan Follow Up Plan Contact Dr. Sanchez's office for a post-hospitalization follow-up appointment within 1-2 weeks. Cardiology Follow-up Provider: 1 week Report or call your Doctor REPORT TO YOUR DOCTOR OR SEEK MEDICAL ATTENTION: *Shortness of breath or have more difficulty breathing. *Swelling of your feet, ankles, hands or abdomen. *Feeling tired with normal activity or experiencing dizziness or fainting. *Trouble sleeping or waking up feeling short of breath or coughing. *Chest pain or pressure. *Weight gain of 3-5 pounds over 2-3 days. *Inability to take medications or follow treatment plan Heart Attach warning signs HEART ATTACK WARNING SIGNS * Chest discomfort. *Discomfort or pain in one or both arms, back, neck, jaw or stomach. *Shortness of breath. *Breaking out in a cold sweat, nausea, or lightheadedness. If you're having heart attack warning signs: CALL . DON'T WAIT MORE THAN A FEW MINUTES - 5 MINUTES AT MOST - TO CALL . Tomas Bowie MD Sep 12, 2016 09:03
[2016-09-12 10:38] VITALS: PULSE 89
--- NOTE | 2016-09-12 14:37 | NUR ---
Discharge He discharged about 1205 with all his belongings. He was taken via wheelchair by the ammunition and explosives handler to a friend's care who came to pick him up and drive home. The discharge paperwork was discussed with and given to him (MD/nurse instructions, care notes, work note). His questions and concerns were addressed. The IV and telemetry were discontinued intact.
--- NOTE | 2016-09-12 18:37 | PCM.DC.MED ---
Discharge Summary Date of Service Sep 12, 2016 Dates of Hospitalization Date of Hospital Admission Sep 10, 2016 at 21:56 Date of Discharge: Sep 12, 2016 Providers: Admitting Physician: Sandip Barros MD Primary Care Physician: Lawrence Garcia DO Attending Physician: Sandip Barros MD Diagnosis at Time of Discharge Diagnosis at Time of Discharge Atrial fibrillation with rapid ventricular response; acute diastolic congestive heart failure; COPD Procedures XRay, CTs & MRIs PROCEDURE: X-RAY CHEST ONE VIEW, PORTABLE ([id number]) IMPRESSION: No acute pulmonary process. Dictated by: Jody Valdez M.D. on 09/10/2016 at 19:35 . ECG 12 Lead 09/10/16 18:43 atrial fib flutter rate 140. No acute ischemic changes. Cardiac Echo Impression Echocardiogram Report Name: MARCO ADEN Study Date : 09/11/2016 Interpretation Summary The left ventricle is normal in size. Left ventricular systolic function is mildly reduced. The ejection fraction is estimated to be 45-50%. There has been no significant change since the previous study. There is basal inferior wall akinesis. There is mid inferior wall hypokinesis. The right ventricle is normal in size and function. The right ventricular systolic pressure is estimated at 46 mmHg assuming a right atrial pressure of 15 mm Hg. Compared to the prior echo exam, there has been an increase in the severity of pulmonary hypertension. The left atrium is severely dilated. The right atrium is moderately dilated. There is no significant valvular heart disease. The aortic root is normal size. . Brief History History of Present Illness (per admission note): Marco Aden is a 56 y.o. male with Chronic Atrial fibrillation s/p ablation, Chronic heart failure with systolic dysfunction and COPD (ongoing smoker) who presents to [facility] emergency department complaining of palpitations. Patient states the palpitations has been ongoing for a least a month but within the last 4 days gotten worse. Associated with bilateral ankle swelling and worsening dyspnea. He denies any coughing or orthopnea. Denies any chest pain. He also noticed general weakness and lack on energy. He is compliant with his medications including Coumadin. Pt had an ablation performed on 03/26/16 for his chronic A-fib/flutter and reports that he has not been doing fine since then. He continues to smoke on a daily basis but has been cutting down. Hospital Course #. Atrial fibrillation with rapid ventricular response. Present on admission Previously on Digoxin but was held as it was ineffective. Currently on Coreg for rate control. [id number] score 2 currently on Coumadin. - continuing Coreg PO, he received Cardizem drip for rate control - Cardiology consult performed cardioversion excessively. #. Atrial fibrillation with anticoagulation excess. INR 3.45 on admission. - Resume outpatient warfarin usual dose - Follow-up INR within 1 week #. Acute on Chronic systolic Heart failure with Cardiomyopathy. Initially well oxygenated 99% on room air in emergency department. Now requiring 4 L nasal cannula with O2 saturations 91-92%. Pulmonary exam with bibasilar crackles and increased O2 requirement suggests acute diastolic heart failure related to atrial fibrillation. - He received Intravenous Lasix to achieve 2 L net diuresis -Then continue Aldactone 25 mg daily and Furosemide 40 mg daily # Chronic Obstructive Pulmonary Disease. No acute exacerbation no coughing or sputum changes however still smokes on a daily basis. - recommend yearly influenza vaccination - continue Symbicort 160/4.5 mcg inhaler 2 puffs bid # SIRS due to Acute respiratory failure with hypoxia. Respiratory rate 27, heart rate 145, blood pressure 87/53 on admission. Subsequently with oxygen deficit. Likely multifactorial COPD and acute diastolic CHF with mild chronic systolic CHF. No evidence for acute infection or sepsis. - Treat heart failure and A. fib rate control #. Hypertension Presumed stable - continued Lisinopril 10 mg bid # Dyslipidemia Presumed stable - continue Atorvastatin 20 mg daily and Fenofibrate # GERD - Received Omeprazole 20 mg daily # Nicotine dependence with ongoing cigarette smoking cessation discussed and encouraged Exam Vital Signs (Last) Date Time Temp Pulse Resp B/P Pulse Ox O2 Delivery O2 Flow Rate FiO2 09/12/16 08:23 88 22 92 Room Air 09/12/16 08:03 36.5 121/77 09/11/16 16:20 4.00 Exam General: Middle-aged man in no acute distress HEENT: sclerae anicteric, oral mucosa moist Neck: JVD approximately 4 cm Chest: Bibasilar crackles, no wheezes Cardiac: S1S2, irregular, no murmur Abdomen: BS normal, non-tender Extremities: 1+ edema Neuro: A&O, cranial nerves symmetric, motor strength and coordination normal Test 09/10/16 19:05 09/10/16 20:05 09/11/16 04:28 09/11/16 20:10 Neutrophils (%) (Auto) 74.9% (40-74) Lymphocytes (%) (Auto) 15.9% (14-46) Monocytes (%) (Auto) 7.0% (4-12) Eosinophils (%) (Auto) 1.3% (0-5) Basophils (%) (Auto) 0.4% (0-3) Total Bilirubin 0.6mg/dL (0.0-1.2) Aspartate Amino Transf (AST/SGOT) 26U/L (0-50) Alanine Aminotransferase (ALT/SGPT) 42U/L (0-44) Alkaline Phosphatase 54U/L (25-150) Pro-B-Type Natriuretic Peptide 5021pg/mL (0-210) Total Protein 7.1g/dL (6.4-8.4) Albumin 3.9g/dL (3.4-5.0) Thyroid Stimulating Hormone (TSH) 1.270uIU/mL (0.450-4.500) Hold Wheeler Top Tube Received (Received) Hold Urine Received (Received) White Blood Count 8.9th/mm3 (3.8-10.1) Red Blood Count 4.51mil/mm3 (4.40-5.80) Hemoglobin 14.7g/dL (13.8-17.2) Hematocrit 43.7% (41.0-50.0) Mean Corpuscular Volume 96.9fL (81-100) Mean Corpuscular Hemoglobin 32.6pg (27.0-35.0) Mean Corpuscular Hemoglobin Concent 33.6% (32.0-37.0) Red Cell Distribution Width 12.6% (12.3-15.4) Platelet Count 182bil/L (150-400) Sodium Level 140mEq/L (134-144) Potassium Level 4.4mEq/L (3.5-5.2) Chloride Level 99mEq/L (97-108) Carbon Dioxide Level 25mmol/L (18-29) Blood Urea Nitrogen 18mg/dL (6-24) Creatinine 0.96mg/dL (0.76-1.27) Estimat Glomerular Filtration Rate 86mL/min (>59) Glucose Level 192mg/dL (60-99) Calcium Level 8.7mg/dL (8.5-10.1) Magnesium Level 2.7mg/dL (1.6-2.6) Troponin T < 0.010ug/L (0.0-0.011) Test 09/12/16 03:58 Prothrombin Time 25.9sec (8.1-12.5) Prothromb Time International Ratio 2.38ratio Discharge Medications Discharge Medications Ascorbic Acid (Vitamin C) 250 Mg Tab.chew 250 MG PO DAILY (Reported) Atorvastatin (Lipitor) 20 Mg Tablet 20 MG PO HS (Reported) Budesonide/Formoterol 160-4.5 mcg Inh (Symbicort 160-4.5 mcg Inh) 120 Puff Inhaler 2 PUFFS INH BID (Reported) Carvedilol (Carvedilol) 12.5 Mg Tablet 18.75 MG PO BID (Reported) Fenofibrate (Fenofibrate) 160 Mg Tablet 160 MG PO DAILYWD (Reported) TAKES IN AM WORKS STRUCTURAL TECHNICIAN Flaxseed Oil ([place]-3 Flaxseed Oil) 1,000 Mg Capsule 2,000 MG PO DAILYWM ( Reported) Furosemide (Lasix) 40 Mg Tablet 40 MG PO QAM (Reported) TAKES IN PM WORKS STRUCTURAL TECHNICIAN Lisinopril (Lisinopril) 10 Mg Tablet 10 MG PO BID (Reported) Multivitamin (Once Daily) 1 Each Tablet 1 TAB PO DAILY (Reported) Omeprazole (Omeprazole) 20 Mg Tablet.dr 20 MG PO QAM (Reported) TAKES IN PM WORKS STRUCTURAL TECHNICIAN Spironolactone (Spironolactone) 25 Mg Tablet 25 MG PO MORNING (Reported) TAKES IN PM WORKS STRUCTURAL TECHNICIAN Warfarin Sodium (Warfarin Sodium) 2.5 Mg Tablet 1.25 MG PO Mo,Th (Reported) Warfarin Sodium (Warfarin Sodium) 2.5 Mg Tablet 2.5 MG PO Tu,We,Fr,Sa,Bruno ( Reported) Followup Plan Follow-up plan Contact Dr. Sanchez's office for a post-hospitalization follow-up appointment within 1-2 weeks. Time spent 35 minutes copies to: Lawrence Garcia DO; Jonathon Sanchez MD, Jeffrey W MD Sep 12, 2016 09:04
--- NOTE | 2016-09-12 20:16 | OP ---
[address] [address] OPERATIVE REPORT PATIENT: MARCO ADEN : 1960 MR#: [id number] ADMIT: 09/10/2016 JOB ID: [id number] DATE OF PROCEDURE: 09/11/2016 SURGEON: Cata Hernandez MD PREOPERATIVE DIAGNOSIS(ES): Recurrent atrial flutter. POSTOPERATIVE DIAGNOSIS(ES): Recurrent atrial flutter. PROCEDURE: Synchronous cardioversion. COMPLICATIONS: None. METHOD: Synchronous cardioversion was performed in the [facility] under IV anesthesia with 1 mg of Versed and 55 mg of Brevital. It was delivered with biphasic 120 joules. The atrial flutter was successfully converted to normal sinus rhythm. [facility]ITALDavid
[2016-10-09] MEDS ORDERED: METO-272 PO (18:17)
[2016-10-09] MEDS ORDERED: IPRA3AMP IH (18:17)
[2016-10-09] MEDS ORDERED: ALBU8.5H2 INHALATION (18:17)
== END 2016-09-12 13:03 | disposition home or self-care (01) | DRG 308 ==
LOC: SED 18:43 → PCC 21:56
PROVIDERS: ADMIT Hospitalist; ATTEND Hospitalist
PROC: 5A2204Z Restoration of Cardiac Rhythm, Single (ICD-10-PCS; principal; 2016-09-11)
DX: I48.92 Unspecified atrial flutter (principal); J96.01 Acute respiratory failure with hypoxia; I50.43 Acute on chronic combined systolic (congestive) and diastolic (congestive) heart failure; J44.9 Chronic obstructive pulmonary disease, unspecified; I48.2 Chronic atrial fibrillation; F17.210 Nicotine dependence, cigarettes, uncomplicated; I42.9 Cardiomyopathy, unspecified; K21.9 Gastro-esophageal reflux disease without esophagitis; E78.5 Hyperlipidemia, unspecified; I10 Essential (primary) hypertension; Z79.01 Long term (current) use of anticoagulants

== ENCOUNTER 2016-10-10 02:01 | Day surgery (SDC) | payer OTHER ==
[~2016-10-10] VITALS: Ht 185.4 cm; Wt 101.8 kg
[2016-10-10] VITALS (18 sets, daily range): BP systolic 110–140; BP diastolic 71–108; PULSE 95–180; RESP 17–32; O2SAT 92–97
[~2016-10-10 02:01] MED LIST changes: +ALBU8.5H2 INHALATION; +ATOR20TA PO; -CARV12.52 PO; -FLAX100010 PO; +FLAX100038 PO; -HYDR-3825 PO; +IPRA3AMP IH; +METO-272 PO; -SIMV20TA4 PO; +WARF2.5T82 PO; -WARF5TAB7 PO; -[UNRECOGNIZED DRUG - OTHER] PO
[2016-10-10] MEDS ORDERED: Atropine 1 mg/10 mL (Code) Syringe ONE (12:34)
[2016-10-10] MEDS ORDERED: Flumazenil 0.1 mg/mL 5 mL Inj IV ONE (12:34)
[2016-10-10] MEDS ORDERED: fentaNYL-PF 50 mCg/mL 2 mL Inj ONE (12:37)
[2016-10-10] MEDS ORDERED: Methohexital 10 mg/mL 50 mL Inj ONE (12:37)
[2016-10-10 13:13] LABS: BASOPHILS % (AUTO) 0.7 % (0-3); EOSINOPHILS % (AUTO) 1.6 % (0-5); MONOCYTES % (AUTO) 7.9 % (4-12); Mean Corpuscular Hemoglobin 32.3 pg (27.0-35.0); Mean Corpuscular Volume 95.8 fL (81-100); NEUTROPHILS % (AUTO) 71.8 % (40-74); Platelet Count 260 bil/L (150-400)
[2016-10-10 13:32] LABS: INR 3.81 ratio
[2016-10-10] MEDS ORDERED: AMIO200T PO (14:39)
[2016-10-10] MEDS ORDERED: AMIO400T4 PO ×2 (14:39)
--- NOTE | 2016-10-10 14:55 | DI95 ---
[address] [address] INTERVENTIONAL CARDIAC CATHETERIZATION PATIENT: MARCO ADEN : 1960 MR#: [id number] ADMIT: 10/10/2016 JOB ID: [id number] DATE: 10/10/2016 PROCEDURE: DC cardioversion. INDICATION: Atrial fibrillation, tachycardia, mediated cardiomyopathy. DESCRIPTION OF PROCEDURE: This patient underwent JUANCARLOS guided cardioversion. There was no evidence of thrombus in the left atrial appendage. He has [id number] LV dysfunction. He was cardioverted successfully with a single 120 joule shock. The patient will be discharged home on amiodarone. He has a prescription for flecainide. I have advised him against it. He will reduce his metoprolol to 100 mg once a day instead of twice a day. He will followup with Dr. Sanchez as an outpatient.
--- NOTE | 2016-10-10 15:20 | NUR ---
Admit/Procedure Admitted to [facility] 1 about 1240. VSS. Denies pain. Tele Afib with RVR 150's to 190's and rare PVC. States only slightly dizzy. IV started and labs sent. Procedure and recovery reviewed. See eMAR and Intraflowsheet for medication administration times. Versed 3mg IV and Fentanyl 50mcg IV given for JUANCARLOS and tolerated well with stable VS. Did require 6L O2 BNC. Cardioverted with 150J x1 at [address] with PAC's and PVC's. VSS. Arousable. Monitoring per orders.
--- NOTE | 2016-10-10 15:22 | DRSVH ---
[facility] [address] [place] [address] Echocardiogram Report Name: MARCO ADEN Date : 10/10/2016 Height: 74 in Hospital Exam Location: [facility] Weight: 224 lb Gender: Male BSA: 2.3 m2 : 1960 Age: 56 yrs BP: 123/104 mmHg Reason For Study: Atrial fibrillation Ordering Physician: Performed By: Bertrand Santiago Interpretation Summary Left ventricular systolic function is moderately reduced. Spontaneous contrast in LA. No thrombus is detected in the left atrial appendage. There is severe biatrial enlargement. There is mild to moderate mitral regurgitation. The aortic valve is normal in structure and function. There is mild tricuspid regurgitation. Procedure: Informed consent for Transesophageal Echocardiogram, and use of a contrast agent as needed, was obtained prior to the procedure. The patient was brought to the [facility] in a fasting state. An intravenous line was placed. A topical anesthetic agent was used for oropharangeal anesthesia. A bite block was inserted. IV concious sedation was administered using versed and fentanyl. The patient was in atrial fibrillation with rapid ventricular response during the exam with a heart rate exceeding 100 bpm. Left Ventricle: Left ventricular systolic function is moderately reduced. Atria: There is severe biatrial enlargement. Spontaneous contrast in LA. No thrombus is detected in the left atrial appendage. Mitral Valve: There is mild to moderate mitral regurgitation. Aortic Valve: The aortic valve is normal in structure and function. No aortic regurgitation is present. Tricuspid Valve: The tricuspid valve is not well visualized, but is grossly normal. There is mild tricuspid regurgitation. Electronically signed by: Speedy Ku on Reading Physician:10/10/2016 03:12 PM
--- NOTE | 2016-10-10 16:07 | NUR ---
Discharge Pt. Returned to baseline by 1515. Up and ambulated to [facility]. Discharge instructions given by Bela ANDERSON and Veronica ANDERSON. See sheets. IV discontinued intact. Discharged home ambulatory with friend and all belongings at 1540 in no distress.
== END 2016-10-10 23:59 | disposition home or self-care (01) ==
LOC: SOUO 02:01
PROVIDERS: ATTEND Internal Medicine Cardiovascular Disease
DX: I48.1 Persistent atrial fibrillation (principal); Z79.01 Long term (current) use of anticoagulants; F17.210 Nicotine dependence, cigarettes, uncomplicated; Z98.890 Other specified postprocedural states; I50.9 Heart failure, unspecified; E78.5 Hyperlipidemia, unspecified; J44.9 Chronic obstructive pulmonary disease, unspecified; I42.9 Cardiomyopathy, unspecified; I08.1 Rheumatic disorders of both mitral and tricuspid valves
CPT/HCPCS: 36415; 80048; 85025; 85610; 92960; 93005; 99152; 99153; C8925; J2250; J3010

== ENCOUNTER 2016-10-17 17:05 | Emergency (ER) | payer OTHER ==
[~2016-10-17] VITALS: Ht 185.4 cm; Wt 104.5 kg
[~2016-10-17 17:05] MED LIST changes: +AMIO200T PO; +AMIO400T4 PO
[2016-10-17 17:10] VITALS: BP 119/87; PULSE 99; RESP 18; O2SAT 95
--- NOTE | 2016-10-17 18:31 | ED.REPORT ---
HPI-General Illness Date of Service October 17, 2016 ED Provider: Joni Blake MD A 56 year old male with a medical history including CHF, COPD, tricuspid regurgitation, hypertension, and atrial fibrillation s/p cardioversion (10/10/16 ) on Coumadin presents to the ED with a high ProTime level (>10 in ED), measured first by lab draw this morning. The patient's only complaint at this time is exertional shortness of breath that is not new. He denies chest pain, hematuria, hematemesis, hematochezia, other bleeding, or other symptoms. The patient began taking amiodarone after his recent cardioversion, while continuing to take his Coumadin. He denies any history of abnormal bleeding. Nursing Notes Stated Complaint: PROTIME LEVEL TOO HIGH Chief Complaint: General Complaint Nursing Notes Reviewed: Yes (Zayo, Cell Therapeuticss reconciled, on warfarin) Allergies: Coded Allergies: No Known Allergies (Verified Allergy, Unknown, 10/17/16) Scheduled Albuterol HFA (Proair HFA) 8.5 Gm Hfa.aer.ad 2 PUFFS INHALATION Q4H Amiodarone (Amiodarone) 400 Mg Tablet 400 MG PO BID For 7 days Amiodarone (Amiodarone) 400 Mg Tablet 400 MG PO DAILY For 7 days Amiodarone (Amiodarone) 200 Mg Tablet 200 MG PO DAILY Atorvastatin (Lipitor) 20 Mg Tablet 20 MG PO HS Budesonide/Formoterol 160-4.5 mcg Inh (Symbicort 160-4.5 mcg Inh) 120 Puff Inhaler 2 PUFFS INH BID Fenofibrate (Fenofibrate) 160 Mg Tablet 160 MG PO DAILYWD TAKES IN AM 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 Flaxseed Oil ([place]-3 Flaxseed Oil) 1,000 Mg Capsule 2,000 MG PO DAILYWM Furosemide (Lasix) 40 Mg Tablet 40 MG PO QAM TAKES IN PM 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 Lisinopril (Lisinopril) 10 Mg Tablet 10 MG PO BID Metoprolol Succinate ER (Metoprolol Succinate ER) 50 Mg Tab.er.24h 100 MG PO DAILY Multivitamin (Once Daily) 1 Each Tablet 1 TAB PO DAILY Omeprazole (Omeprazole) 20 Mg Tablet.dr 20 MG PO QAM TAKES IN PM 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 Spironolactone (Spironolactone) 25 Mg Tablet 25 MG PO MORNING TAKES IN PM 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 Warfarin Sodium (Warfarin Sodium) 2.5 Mg Tablet 1.25 MG PO DAILY start on friday 10/20 with 1.25mg and saturday 10/21 1.25mg get rechecked on saturday Scheduled PRN Ipratropium/Albuterol Sulfate (Iprat-Albut 0.5-3(2.5) mg/3 mL Inhalant Soln) 3 Ml Ampul.neb 3 ML IH Q6 PRN PRN For Wheezing General Time Seen by MD: 18:30 Chief Complaint Other (High ProTime Lab Result) Hx Obtained From: Patient Arrived By: Walk-in Onset Occurred: 9 - 12 hours ago (Lab draw this morning) Symptom Duration: Since onset Severity: Current: No pain currently Severity: Maximum: No pain Pertinent Negative: Relieved by nothing Context Related History: Reports Recent medication Recent Healthcare: Recent doctor visit Past Medical History Past Medical History Notes: 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 Patient had marked echocardiographic improvement if improving to 45% subsequent to medical management. Hyperlipidemia Atrial fibrillation s/p Cardioversion (10/10/16) Tricuspid regurgitation COPD Chronic heart failure with Cardiomyopathy Psoriasis GERD Reports: COPD, Congestive heart failure, Hypertension Past Surgical History Hip ORIF surgery Ablation procedure Family History Father has dementia, Parkinson and Hypertension Mother is Diabetic and Coronary artery disease Smoking History Current Every Day Smoker Social History Alcohol Use: "Social" Drug Use: Denies drug use Ambulatory Status Independent Review of Systems + High ProTime level Full Review of Systems Constitutional: Denies: Fever Respiratory: Reports: Shortness of breath (Exertional), Denies: Non-productive cough Cardiovascular: Denies: Chest pain GI: Denies: Diarrhea, Hematemesis, Hematochezia, Vomiting Male: Denies Hematuria Hematologic: Denies Bleeding Complete sys rev & neg: except as marked. Physical Exam Vital Signs Vital Signs Date Time Temp Pulse Resp B/P Pulse Ox O2 Delivery O2 Flow Rate FiO2 10/17/16 19:30 36.4 78 16 125/87 95 Room Air 10/17/16 17:10 36.0 99 18 119/87 95 Room Air Initial VS: Reviewed, Vital signs normal Head / Eyes: Atraumatic, Normocephalic ENT: Conjunctiva normal, No scleral icterus Neck: Supple, Full range of motion Respiratory: Breath sounds normal, Clear to auscultation, No respiratory distress Cardiovascular: Regular rate & rhythm, Heart sounds normal Skin: Warm, Dry Neurologic: Alert, Oriented, Nonfocal Psychiatric: Mood/affect normal, Behavior normal, Normal thought content General/Constitutional: Awake, Alert, No acute distress Upper Extremities Upper Extremity / MS: Full range of motion, Non-tender Bruise at lab draw site in left antecubital Interpretation & Diagnostics Interpretation & Diagnostics: No labs visible in EMR from today Lab Results Interpretation Test 10/17/16 17:50 Prothrombin Time > 120.0sec (8.1-12.5) Prothromb Time International Ratio > 10.00ratio Lab Results Interpretation: INR greater than 10 Re-Eval/Medical Decision Med Decision/Clinical Course This is a 56-year-old male who presents having been referred in as his INR is greater than 10 She reports no symptoms, no history of bleeding, no complaints. He is on warfarin for atrial fibrillation, and just recently as of last week was placed on amiodarone, but was not aware the interaction. His INR was measured be elevated on the fingerstick, then a lab draw, and he received a phone call to come into the emergency department. Again he has no complaints, he does not want to stay. INR was drawn by nursing staff and is in the greater than 10 Pharmacy was consulted, Up to Date and Chest thoracic guidelines were reviewed - all agree that the treatment is simply holding warfarin, and generally a recommended dose of vitamin K and close follow-up. Patient has an INR rescheduled for Saturday, he does not want come in for repeat checks tomorrow. So the patient received 5 mg of by mouth vitamin K today, he will hold his warfarin, take an additional 2.5 mg next 2 days, he will return immediately if he develops any symptoms. He will take it easy. Return precautions reviewed. Patient is discharged in good condition, Source of Hx: Old records Time of Eval: 19:00 Patient Status: Condition improved Re-Evaluation/Progress Note: Discussed with patient lab results, diagnosis, and plan for discharge. Follow-up and return to the ER instructions given. Patient agrees with plan for care and all questions were addressed. Differential Diagnosis: Negative: Abdominal pain, Acute coronary syndrome, Diabetes mellitus, Drug dependence, G-tube repair/replacement, Neutropenia Counseled Regarding: Diagnosis, Lab results, Need for follow-up, When/why to return to ED Discharge & Departure Primary Impression: Supratherapeutic INR Disposition: Home Discharge Condition All VS Reviewed: Yes Condition: Improved Additional Instructions: 1. Your INR was elevated (>10) today. 2. Stop your Coumadin (until your INR recheck on Saturday) 3. You received 5mg of Vitamin K today 4. Take vitamin K 2.5m tomorrow and Saturday. 5. Return immediately if you develop any signs or symptoms of bleeding. Referrals: Lawrence Garcia DO (PCP) Antoinetteibdenise Attestation Portions of this note were transcribed by Seda Rush. I, Dr. Blake, personally performed the history, physical exam, and medical decision-making; I reviewed and confirmed the accuracy of the information in the transcribed note. Signed by: Thanh Pires, 10/17/2016, 20:17 copies to: Lawrence Garcia Matthew F MD October 17, 2016 18:31 SEDA RUSH October 17, 2016 18:40
[2016-10-17 18:47] LABS: INR > 10.00 ratio
[2016-10-17] MEDS ORDERED: Phytonadione (Adult) 10 mg/1 mL Inj PO ONE (18:50)
[2016-10-17 19:30] VITALS: BP 125/87; PULSE 78; RESP 16; O2SAT 95
== END 2016-10-17 19:31 | disposition home or self-care (01) ==
LOC: SED 17:05
DX: R79.1 Abnormal coagulation profile (principal); R06.02 Shortness of breath; I11.0 Hypertensive heart disease with heart failure; I50.9 Heart failure, unspecified; I48.91 Unspecified atrial fibrillation; I42.9 Cardiomyopathy, unspecified; J44.9 Chronic obstructive pulmonary disease, unspecified; K21.9 Gastro-esophageal reflux disease without esophagitis; E78.5 Hyperlipidemia, unspecified; F17.200 Nicotine dependence, unspecified, uncomplicated; Z79.01 Long term (current) use of anticoagulants
CPT/HCPCS: 36415; 85610; 99283; J3430

== ENCOUNTER 2016-11-05 21:50 | Inpatient (IN) | payer OTHER ==
[~2016-11-05] VITALS: Ht 185.4 cm; Wt 106.1 kg
[2016-11-05 21:52] VITALS: BP 143/97; PULSE 144; RESP 26; O2SAT 92
--- NOTE | 2016-11-05 22:09 | ED.REPORT ---
HPI-General Illness Date of Service November 05, 2016 ED Provider: Dr. Macedo Pt is a 56 y/o male anticoagulated on Warfarin w/ a hx of A-fib, CHF, tricuspid regurgitation, COPD, HTN, presenting to the ED c/o SOB onset 2 weeks. He states he has been in atrial fibrillation for 2 weeks after requiring a cardioversion. He believes his a-fib is causing him significant abdominal swelling, abdominal pain, and shortness of breath. Pt denies CP. Nursing Notes Stated Complaint: AFIB, SWELLING, PROBLEMS BREATHING Chief Complaint: Dysrhythmia/Cardiac Nursing Notes Reviewed: Yes Allergies: Coded Allergies: No Known Allergies (Verified Allergy, Unknown, 10/17/16) Scheduled Albuterol HFA (Proair HFA) 8.5 Gm Hfa.aer.ad 2 PUFFS INHALATION Q4H Amiodarone (Amiodarone) 400 Mg Tablet 400 MG PO DAILY For 7 days Amiodarone (Amiodarone) 200 Mg Tablet 200 MG PO DAILY Atorvastatin (Lipitor) 20 Mg Tablet 20 MG PO HS Budesonide/Formoterol 160-4.5 mcg Inh (Symbicort 160-4.5 mcg Inh) 120 Puff Inhaler 2 PUFFS INH BID Fenofibrate (Fenofibrate) 160 Mg Tablet 160 MG PO DAILYWD 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 Flaxseed Oil ([place]-3 Flaxseed Oil) 1,000 Mg Capsule 2,000 MG PO DAILYWM Furosemide (Lasix) 40 Mg Tablet 20 MG PO QAM TAKES IN PM WORKS 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[employer] 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 Lisinopril (Lisinopril) 10 Mg Tablet 10 MG PO BID Metoprolol Succinate ER (Metoprolol Succinate ER) 50 Mg Tab.er.24h 50 MG PO BID Multivitamin (Once Daily) 1 Each Tablet 1 TAB PO DAILY Omeprazole (Omeprazole) 20 Mg Tablet.dr 20 MG PO QAM TAKES IN PM 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 Patient had marked echocardiographic improvement if improving to 45% subsequent to medical management. Hyperlipidemia Atrial fibrillation - On Warfarin Tricuspid regurgitation COPD Chronic heart failure with Cardiomyopathy Psoriasis GERD Reports: COPD, Congestive heart failure, Hypertension Past Surgical History Hip ORIF surgery Ablation procedure Family History Father has dementia, Parkinson and Hypertension Mother is Diabetic and Coronary artery disease Smoking History Current Every Day Smoker Social History Alcohol Use: "Social" Drug Use: Denies drug use Ambulatory Status Independent Review of Systems +abdominal swelling Full Review of Systems Constitutional: Denies: Chills, Fever Respiratory: Reports: Shortness of breath Cardiovascular: Reports: Palpitations, Denies: Chest pain GI: Reports: Abdominal pain Complete sys rev & neg: except as marked. Physical Exam Vital Signs Vital Signs Date Time Temp Pulse Resp B/P Pulse Ox O2 Delivery O2 Flow Rate FiO2 11/06/16 00:35 127 11/06/16 00:30 127 141/86 11/05/16 23:59 143 11/05/16 23:24 147 26 135/78 93 Room Air 11/05/16 21:52 144 26 143/97 92 Room Air Initial VS: Reviewed, Vital signs abnormal Head / Eyes: Atraumatic, Normocephalic, PERRL ENT: Mucous membranes moist, Conjunctiva normal, No scleral icterus Neck: Supple, Full range of motion Extremities: Vascular intact, Neuro intact Skin: Warm, Dry, No cyanosis Neurologic: Alert, Oriented, Nonfocal Psychiatric: Mood/affect normal, Behavior normal, Normal thought content General/Constitutional: Awake, Alert, Cooperative, Not toxic appearing Distress / Hydration: Positive: Distress mild Respiratory / Chest: No stridor Resp Distress / Stridor: Positive: Resp distress mild Pursed lip breathing Crackles throughout Cardiovascular: Heart sounds NL Heart Rate / Rhythm: Positive: Irreg irregular rhythm, Tachycardia Distant heart sounds Pitting edema extending up the entire legs and to the abdomen Abdomen: Atraumatic, Non-tender Abdomen significantly distended - Anasarca present Interpretation & Diagnostics Lab Results Interpretation Result Diagram: 11/06/16 0505 11/06/16 0505 Test 11/05/16 22:40 Prothrombin Time 31.1sec (8.1-12.5) Prothromb Time International Ratio 2.85ratio Activated Partial Thromboplast Time 30.5sec (22.8-33.0) D-Dimer < 0.50mg/L FEU (<0.50) Total Bilirubin 0.8mg/dL (0.0-1.2) Aspartate Amino Transf (AST/SGOT) 36U/L (0-50) Alanine Aminotransferase (ALT/SGPT) 33U/L (0-44) Alkaline Phosphatase 65U/L (25-150) Troponin T 0.010ug/L (0.0-0.011) Pro-B-Type Natriuretic Peptide 3129pg/mL (0-210) Total Protein 7.4g/dL (6.4-8.4) Albumin 3.9g/dL (3.4-5.0) Hold Wheeler Top Tube Received (Received) ECG Interpretation ECG Interpretation: Atrial fibrillation rate 139 Time: 22:53 Interpreted by: ED physician Normal ECG Interpretation: No acute ischemic changes X-Ray Chest Interpretation Chest Xray Interpretation: Heart size at upper end of normal. Minor interstitial markings Overall unremarkable chest x-ray View: Portable, 1 view Interpretation / Wet Read by: Wet read ED physician Re-Eval/Medical Decision Med Decision/Clinical Course 56-year-old with recurrent atrial fibrillation presents with progressive CHF and right-sided failure. His recent echo shows an markedly dilated atrium, and he is very unlikely to remain in sinus rhythm. His recent experience is consistent with that finding. He has had steady accumulation of fluid since his return atrial fibrillation, and remains in a moderately rapid atrial fibrillation here. He is improved with digoxin given as a 0.5 mg initial dose, was 0.25 mg loading dose is to follow. He has diuresed briskly with Lasix IV. He is admitted now for continued diuresis, rate control, and further evaluation. Time of Eval: 00:52 Re-Evaluation/Progress Note: Pt rechecked. Informed pt of need for admission for further rate management and CHF evaluation. Pt understands and agrees with plan for admission. All questions addressed. Consultation : Referral / Consult Name: Sandip Barros MD Consulted With: Hospitalist Call Returned at: 01:13 Event Attendant: Will see patient, Agrees with eval, Agrees with plan, Accepts admit Counseled Regarding: Diagnosis, Lab results, Need for admission Discharge & Departure Primary Impression: Congestive heart failure Congestive heart failure type: unspecified congestive heart failure type Congestive heart failure chronicity: chronic Qualified Code: I50.9 - Heart failure, unspecified Additional Impressions: Atrial fibrillation with rapid ventricular response Anasarca Anticoagulated on warfarin Disposition: ADMITTED TO HOSPITAL Discharge Condition All VS Reviewed: Yes Condition: Improved Referrals: Lawrence Garcia DO (PCP) Crit Care Except Billable Proc Time Spent: 30-74 minutes (thirty minutes) Services Performed: Patient management by me, Time spent at bedside, Reviewing test results, Reviewing imaging, Discussing patient care, Documentation in record, Time with fam/surrogate Scribe Attestation Portions of this note were transcribed by Manuel Velasco. I, Dr. Macedo personally performed the history, physical exam and medical decision-making; I reviewed and confirmed the accuracy of the information in the transcribed note. Signed by Thanh Lowe, 11/05/16 - 0965 copies to: Lawrence Garcia Christopher W MD November 05, 2016 22:09 MANUEL VELASCO November 05, 2016 22:13 Albumin 3.9g/dL (3.4-5.0) Hold Wheeler Top Tube Received (Received) ECG Interpretation ECG Interpretation: Atrial fibrillation rate 139 Time: 22:53 Interpreted by: ED physician Normal ECG Interpretation: No acute ischemic changes X-Ray Chest Interpretation Chest Xray Interpretation: Heart size at upper end of normal. Minor interstitial markings Overall unremarkable chest x-ray View: Portable, 1 view Interpretation / Wet Read by: Wet read ED physician Re-Eval/Medical Decision Time of Eval: 00:52 Re-Evaluation/Progress Note: Pt rechecked. Informed pt of need for admission for further rate management and CHF evaluation. Pt understands and agrees with plan for admission. All questions addressed. Consultation : Referral / Consult Name: Sandip Barros MD Consulted With: Hospitalist Call Returned at: 01:13 Event Attendant: Will see patient, Agrees with eval, Agrees with plan, Accepts admit Counseled Regarding: Diagnosis, Lab results, Need for admission Discharge & Departure Primary Impression: Congestive heart failure Congestive heart failure type: unspecified congestive heart failure type Congestive heart failure chronicity: chronic Qualified Code: I50.9 - Heart failure, unspecified Additional Impressions: Atrial fibrillation with rapid ventricular response Anasarca Disposition: ADMITTED TO HOSPITAL Discharge Condition All VS Reviewed: Yes Condition: Improved Referrals: Lawrence Garcia DO (PCP) Thanh Attestation Portions of this note were transcribed by Manuel Velasco. I, Dr. Macedo personally performed the history, physical exam and medical decision-making; I reviewed and confirmed the accuracy of the information in the transcribed note. Signed by Thanh Lowe, 11/05/16 - 0090 copies to: Lawrence Garcia Christopher W MD November 05, 2016 22:09 MANUEL VELASCO November 05, 2016 22:13
[2016-11-05 23:05] LABS: BASOPHILS % (AUTO) 0.7 % (0-3); EOSINOPHILS % (AUTO) 1.5 % (0-5); MONOCYTES % (AUTO) 8.1 % (4-12); Mean Corpuscular Hemoglobin 31.5 pg (27.0-35.0); Mean Corpuscular Volume 96.3 fL (81-100); NEUTROPHILS % (AUTO) 74.5 % (40-74); Platelet Count 195 bil/L (150-400)
[2016-11-05] MEDS ORDERED: Furosemide 10 mg/mL 10 mL Inj IVPUSH ONE (23:05)
[2016-11-05 23:18] LABS: TROPONIN T 0.01 ug/L (0.0-0.011)
[2016-11-05 23:21] LABS: D-Dimer < 0.50 mg/L FEU (<0.50); INR 2.85 ratio
[2016-11-05 23:24] VITALS: BP 135/78; PULSE 147; RESP 26; O2SAT 93
[2016-11-05] MEDS ORDERED: Digoxin 0.25 mg/mL 2 mL Inj IV ONE (23:30)
[2016-11-05 23:41] LABS: Magnesium 1.5 mg/dL (1.6-2.6)
[2016-11-06] VITALS (15 sets, daily range): BP systolic 104–152; BP diastolic 65–96; PULSE 83–127; RESP 16–26; O2SAT 88–96
[2016-11-06] MEDS ORDERED: Magnesium Sulf 4 Gm/100 mL H2O 4 GM in IV Premix 1 EACH IV ONE (00:05)
[2016-11-06] MEDS ORDERED: Digoxin 0.25 mg/mL 2 mL Inj IV ONE (00:05)
[2016-11-06] MEDS ORDERED: Senna-Docusate 8.6-50 mg Tablet PO PRN (01:10)
[2016-11-06] MEDS ORDERED: Polyethylene Glycol (PEG) 17 Gm Powder PO PRN (01:10)
[2016-11-06] MEDS ORDERED: Alum-Mag Hydrox-Simeth 30 mL Suspension PO PRN (01:10)
[2016-11-06] MEDS ORDERED: Ondansetron 2 mg/mL 2 mL Inj IVPUSH PRN (01:10)
--- NOTE | 2016-11-06 01:25 | PCM.HPMED ---
Subjective Date of Service November 06, 2016 Primary Provider: Admitting Physician: Primary Care Physician: Lawrence Garcia DO Attending Physician: Admit Status: From the Emergency Department, [facility] Telemetry Chief Complaint: AFIB, SWELLING, PROBLEMS BREATHING History of Present Illness: Pt is a 56 y/o male anticoagulated on Warfarin w/ a hx of A-fib, CHF, tricuspid regurgitation, COPD, HTN, presenting to the ED c/o SOB onset 2 weeks. He states he has been in atrial fibrillation for 2 weeks after requiring a cardioversion. He believes his a-fib is causing him significant abdominal swelling, abdominal pain, and shortness of breath. Pt denies CP. Patient was seen at the [facility] cardiology clinic 1 week ago on 10/29, at which time his amiodarone and his furosemide dosing was changed. Furosemide was decreased from 40 mg by mouth daily to 20 mg daily. Patient states overall swelling had continued to get worse since then and got to a point where he was too uncomfortable and then to the ED. 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 In the ED and pulse 144, respiratory 26, blood pressure 143/97, pulse ox 92% on room air. Labs significant for WBC 10.3, glucose 126, magnesium 1.5, otherwise , unremarkable. ECC positive for atrial fibrillation at rate of 139, with no acute ischemic changes. Lawrence Garcia DO (PCP) Review of Systems: Constitutional: Denies: Chills, Fever Respiratory: Reports: Shortness of breath, denies cough Cardiovascular: Reports: Palpitations, Denies: Chest pain GI: Reports: Abdominal pain and swelling Ext: Reports lower extremity swelling Complete sys rev & neg: except as marked. Complete review of systems reviewed and negative other than noted above or in history of present illness. 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 Patient had marked echocardiographic improvement of improving to 45% subsequent to medical management. Hyperlipidemia Atrial fibrillation - On Warfarin Tricuspid regurgitation COPD Chronic heart failure with Cardiomyopathy Psoriasis GERD Hypertension Surgical History Hip ORIF surgery Ablation procedure Family History Father has dementia, Parkinson and Hypertension Mother is Diabetic and Coronary artery disease Social History Occupation: works at a [employer] Hx Alcohol Use: Yes (drinks socially) Hx Substance Use: No Hx Tobacco Use: Yes Smoking Status: Current Every Day Smoker (currently smokes 4-5 cigs/day, 35+ years smoking history) Exam Vital Signs Vital Sign - Last Date Time Temp Pulse Resp B/P Pulse Ox O2 Delivery O2 Flow Rate FiO2 11/06/16 00:35 127 11/06/16 00:30 141/86 11/05/16 23:24 26 93 Room Air Exam General: Alert, Oriented X3, Cooperative, No acute distress. HEENT: PERRLA, EOMI, No scleral icterus, Conjunctiva normal, Mucous Membrane Moist/[place], missing teeth Neck: Supple Chest & Lungs: Diffuse crackles. Mild respiratory distress Cardiovascular: Irregular Rate/Rhythm, tachycardia Abdomen: Non-tender, Non-distended, Obese Extremities: No cyanosis/clubbing bilat, 2+ pitting edema extending up to lower abdomen Skin: Warm, Dry, No cyanosis Neurological: no focal deficits Psychiatric: Mood/affect normal, Behavior normal, Normal thought content Lab and Diagnostics Result Diagram: 11/05/16223911/05/162239 X-Rays, CTs and MRIs Chest Xray Interpretation: Heart size at upper end of normal. Minor interstitial markings Overall unremarkable chest x-ray View: Portable, 1 view Interpretation / Wet Read by: Wet read ED physician 12-lead ECG ECG Interpretation: Atrial fibrillation rate 139 Time: 22:53 Interpreted by: ED physician Normal ECG Interpretation: No acute ischemic changes Assessment & Plan Pt is a 56 y/o male anticoagulated on Warfarin w/ a hx of A-fib, CHF, tricuspid regurgitation, COPD, HTN, presenting to the ED c/o SOB with abdominal swelling and discomfort, onset 2 weeks. Patient was seen at the [facility] cardiology clinic 1 week ago on 10/29, at which time his amiodarone and his furosemide dosing was changed. Furosemide was decreased from 40 mg by mouth daily to 20 mg daily. Patient admitted for further management and treatment. Acute respiratory failure without hypoxia, and abdominal swelling with discomfort, present on admission. Improving. - Most likely multifactorial due to COPD, poor control of CHF and A. fib with RVR. Patient notes much improvement after IV Lasix. - Will treat heart failure and A. fib rate control Acute on chronic diastolic heart failure with cardiomyopathy, present on admission. Unstable. 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 Patient had marked echocardiographic improvement of improving to 45% subsequent to medical management. - Transesophageal echo from September 2016 showed moderately reduced left ventricular systolic function, severe biatrial enlargement.transthoracic echocardiogram from August 2016 showed an EF of 45-50%. - Recent changes made to his furosemide dosing per cardiology, decreasing his furosemide from 40 mg daily to 20 mg daily on 10/29/2016 - Received 80 mg IV furosemide and ED - Furosemide 40 mg PO daily - Strict I&O's with standing daily weights - Patient on beta christine, aldosterone antagonist, ACEi Atrial fibrillation with RVR, present on admission. Acute. - Recent changes made to his amiodarone dosing per cardiology, patient currently states he is on 200 mg 2 tablets daily, to be decreased to 1 tablet daily in another week and a half - Per prior notes, patient was on digoxin was held as it was not effective - [id number] score 2 currently anticoagulated on warfarin - Cardizem drip started for rate control - Warfarin dosing per pharmacy Anasarca, present on admission. Improving. - Patient received 80 mg IV Lasix in the ED, states his breathing and his discomfort has greatly improved - Most likely due to the recent change in furosemide, a also be due to changes in his CHF and atrial fibrillation status Hypomagnesemia, present on admission. Repleted. - Recheck in am Chronic conditions: COPD - continue home dose of Symbicort Hyperlipidemia - continue home dose of atorvastatin, fenofibrate Hypertension - continue home dose metoprolol succinate, lisinopril, spironolactone GERD - continue home dose of omeprazole Psoriasis Nicotine dependence with ongoing cigarette smoking - cessation discussed and encouraged Acetaminophen-fever/headache/mild/moderate pain Antiemetics, as needed Bowel regimen, as needed. Patient status: Patient was admitted under inpatient status with expected length of stay greater than two midnights due to severity of presenting symptoms , risk of adverse event, and complexity of treatment plan. Pain Evaluation: Adequate Pain Control Resuscitation Status: CPR: Attempt Resuscitation Attending Statement The patient was seen and examined together with Dr. Mensah on 11/06 and I agree with the history, exam and plan as outlined in the note above. Mayi Mensah DO November 06, 2016 01:24 Sandip Barros MD November 06, 2016 04:40
[2016-11-06] MEDS: Diltiazem Inj 125 MG in 0.9% Sodium Chloride 100 ML, Pharmacy To Mix 1 EA IV SCH (03:02)
--- NOTE | 2016-11-06 05:03 | NUR ---
Admit To floor from ED at 0405. Alert and oriented. Gait is stable and patient is able to stand for a weight and transfer himself to the bed. Denies pain or dizziness, although c/o abdominal discomfort, due to abdominal distention. Patient states this is new. Has pitting edema to lower extremities bilaterally. Cardizem drip infusing at 5/hr. Tele is afib/flutter with rate in 90's and low 100's. Pt states he understands the plan of care. No questions at this time.
[2016-11-06 05:18] LABS: BASOPHILS % (AUTO) 0.9 % (0-3); EOSINOPHILS % (AUTO) 2.4 % (0-5); MONOCYTES % (AUTO) 10.4 % (4-12); Mean Corpuscular Hemoglobin 32.7 pg (27.0-35.0); Mean Corpuscular Volume 96.1 fL (81-100); NEUTROPHILS % (AUTO) 63.5 % (40-74); Platelet Count 182 bil/L (150-400)
[2016-11-06 05:58] LABS: Magnesium 2.1 mg/dL (1.6-2.6)
[2016-11-06] MEDS ORDERED: Albuterol-Ipratropium 3 mL Inhalation Solution NEB PRN (06:35)
[2016-11-06] MEDS: Sodium Chloride LOK Flush 10 mL Syringe IVFLUSH SCH ×2 (08:30→13:02)
[2016-11-06] MEDS: Pantoprazole 20 mg ER24 Tablet PO SCH (08:40)
--- NOTE | 2016-11-06 09:03 | DRSVH ---
PROCEDURE: X-RAY CHEST ONE VIEW, PORTABLE ([id number]) INDICATIONS: AFIB, SWELLING TECHNIQUE: One view of the chest was acquired. COMPARISON: [facility], CR, XR CHEST 2VW, 09/26/2016, 14:52. [facility], CR, XR CHEST 1VW (PORTABLE), 09/10/2016, 18:57. FINDINGS: Surgical changes and devices: None. Lungs and pleura: No pleural effusions or pneumothorax. Lung volumes are increased with flattening of the hemidiaphragms suggesting COPD. Scarring within the lung bases. Mediastinum: Mediastinal contours appear normal. Heart size is normal. Bones and chest wall: No suspicious bony lesions. Overlying soft tissues appear unremarkable. IMPRESSION: No acute cardiopulmonary disease. Dictated by: Jason Grover [facility] Interpreted: Eilene Prajapati MD on 11/06/2016 at 9:03 Transcribed by: NORMA on 11/06/2016 at 9:03 Approved by: Eileen Prajapati M.D. on 11/06/2016 at 11:57
[2016-11-06] MEDS: Fluticasone-Salmeterol 500-50 Inhaler INHALATION SCH ×2 (09:36→21:00)
--- NOTE | 2016-11-06 10:54 | PCM.CHPCAR ---
Consult Subjective Date of service November 06, 2016 Date of admit November 06, 2016 at 02:30 Provider Requesting Consult Requesting Provider: Tomas Bowie MD Primary Care Physician Primary Care Physician: Lawrence Garcia DO Chief Complaint Fluid retention and swelling History of Present Illness Pt is a 56 y/o male anticoagulated on Warfarin w/ a hx of A-fib, Cardiomyopathy and diastolic heart failure, tricuspid regurgitation, COPD, HTN, presenting to the [facility] ED with increased abdominal girth and lower extremity swelling with shortness of breath. The patient is typically seen by Dr. Montilla last on 10/29, he has recently been titrating down on oral Amiodarone and Lasix. Furosemide was decreased from 40 mg by mouth daily to 20 mg daily. Patient states overall swelling had continued to get worse since then and got to a point where he was too uncomfortable and then to the ED. The patient believes his trial fibrillation is causing the majority of his symptoms including abdominal and lower extremity swelling, intermittent right sided chest pain, intermittent nausea and shortness of breath. The patient has a history of COPD and is on Symbicort daily as well as an albuterol rescue inhaler which he avoids using due to tachycardia. The patient was seen in [facility] for JUANCARLOS cardioversion on 10/10 however converted back to atrial fibrillation within 2 weeks. The patient has had significant difficulties in controlling his INR with fluctuations reported as high as an INR of 10 and lows down to subtherapeutic 1.3. The patient has had an ablative procedure in the past which resulted in 6 months of normal sinus rhythm. Review of Systems Review of Systems A comprehensive review of systems was completed and all are negative except for what is included in the history of present illness. PMH Past Medical History Hyperlipidemia Atrial fibrillation - On Amiodarone, Metoprolol, and Warfarin Tricuspid regurgitation COPD Chronic systolic and diastolic heart failure with possible tachycardia induced cardiomyopathy Psoriasis GERD Hypertension Past Surgical History Hip ORIF surgery Ectopic foci ablation procedure Scheduled ([immune boost Vit C]) 1 TAB PO DAILY (Reported) Amiodarone (Amiodarone) 200 Mg Tablet 200 MG PO BID x 1 week then QD (Reported) Atorvastatin (Lipitor) 20 Mg Tablet 20 MG PO HS (Reported) Budesonide/Formoterol 160-4.5 mcg Inh (Symbicort 160-4.5 mcg Inh) 120 Puff Inhaler 2 PUFFS INH BID (Reported) Fenofibrate (Fenofibrate) 160 Mg Tablet 160 MG PO DAILYWD (Reported) 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 Flaxseed Oil (Green-3 Flaxseed Oil) 1,000 Mg Capsule 2,000 MG PO DAILYWM ( Reported) Furosemide (Lasix) 40 Mg Tablet 20 MG PO QAM (Reported) Lisinopril (Lisinopril) 10 Mg Tablet 10 MG PO BID (Reported) Metoprolol Succinate ER (Metoprolol Succinate ER) 100 Mg Tab.er.24h 50 MG PO BID (Reported) Multivitamin (Once Daily) 1 Each Tablet 1 TAB PO DAILY (Reported) Omeprazole (Omeprazole) 20 Mg Tablet.dr 20 MG PO QAM (Reported) Spironolactone (Spironolactone) 25 Mg Tablet 25 MG PO DAILY (Reported) Warfarin Sodium (Warfarin Sodium) 2.5 Mg Tablet 1.25 MG PO DAILY (Reported) Scheduled PRN Albuterol HFA (Proair HFA) 8.5 Gm Hfa.aer.ad 2 PUFFS INHALATION q4-6 hours PRN PRN For Shortness of Breath (Reported) Ipratropium/Albuterol Sulfate (Iprat-Albut 0.5-3(2.5) mg/3 mL Inhalant Soln) 3 Ml Ampul.neb 3 ML IH Q6 PRN PRN For Wheezing (Reported) Discontinued Medications Amiodarone (Amiodarone) 400 Mg Tablet 400 MG PO BID (Reported) For 7 days Amiodarone (Amiodarone) 400 Mg Tablet 400 MG PO DAILY (Reported) For 7 days Apixaban (Eliquis) 5 Mg Tablet 5 MG PO BID Metoprolol Succinate ER (Metoprolol Succinate ER) 50 Mg Tab.er.24h 50 MG PO BID (Reported) Current Inpatient Medications Current Medications Sodium Chloride 10 ml АНДРЕЙ IVFLUSH; Start 11/06/16 at 08:30 Al Hydrox/Mg Hydrox/Simethicone 30 ml Q6H PRN PO; Start 11/06/16 at 01:10 Ondansetron HCl 4 mg Q4H PRN IVPUSH; Start 11/06/16 at 01:10 Senna 2 tablet BID PRN PO; Start 11/06/16 at 01:10 Polyethylene Glycol 17 gm DAILY PRN PO; Start 11/06/16 at 01:10 Acetaminophen 650 mg Q6H PRN PO; Start 11/06/16 at 01:10 Nitroglycerin 0.4 mg 0.4 mg Q5MIN PRN SL; Start 11/06/16 at 01:10 Diltiazem HCl/ Sodium Chloride/ Miscellaneous 125 ml @ 5 mls/hr Q24H IV Last administered on 11/06/16 03:02; Admin Dose 5 MLS/HR; Start 11/06/16 at 02:30 Atorvastatin Calcium 20 mg HS PO; Start 11/06/16 at 21:00 Salmeterol Xinafoate/ Fluticasone 1 puff BID INHALATION Last administered on 09:36; Admin Dose 1 PUFF; Start 11/06/16 at 08:30 Fenofibrate 145 mg DAILYWD PO; Start 11/06/16 at 17:30 Lisinopril 10 mg BID PO Last administered on 11/06/16 08:40; Admin Dose 10 MG; Start 11/06/16 at 08:30 Spironolactone 25 mg MORNING PO Last administered on 11/06/16 08:40; Admin Dose 25 MG; Start 11/06/16 at 08:30 Pantoprazole 20 mg DAILY PO Last administered on 11/06/16 08:40; Admin Dose 20 MG; Start 11/06/16 at 08:30 Metoprolol Tartrate 25 mg BID PO Last administered on 11/06/16 08:40; Admin Dose 25 MG; Start 11/06/16 at 08:30 Albuterol/ Ipratropium 3 ml Q6H PRN NEB Last administered on 11/06/16 07:24; Admin Dose 3 ML; Start 11/06/16 at 06:35 Allergies: Coded Allergies: No Known Allergies (Verified Allergy, Unknown, 10/17/16) Family History Family History Mother had diabetes and heart disease and early 60s due to complications Father had a stroke and subsequent heart attack and in his 70s Social History Occupation: works at a [employer] Hx Alcohol Use: Yes (drinks socially)Hx Substance Use: NoHx Tobacco Use: Yes Smoking Status: Current Every Day Smoker Exam Vital Signs Vital Sign - Last Date Time Temp Pulse Resp B/P Pulse Ox O2 Delivery O2 Flow Rate FiO2 11/06/16 08:27 36.5 91 23 138/77 88 Room Air Intake and Output 11/05/16 11/05/16 11/06/16 Cumulative From/Thru 15:00 23:00 07:00 11/05/16 21:52 - 11/06/16 04:19 Output Total 1900 ml 1900 ml Balance -1900 ml -1900 ml Output Urine Total 1900 ml 1900 ml Objective General appearance: Middle age male chronically ill appearing in no apparent distress, pleasant, cooperative HEET: Normocephalic atraumatic, no scleral icterus, tongue midline, mucous membranes moist Neck: supple, mild JVD, no carotid bruits Cardiovascular: irregularly irregular rhythm with mild-moderate PVC burden, normal S1 and normal S2, no murmurs/rubs/gallops, PMI nondisplaced, mild JVD, moderate 2-3+ pitting peripheral edema in lower extremities bilaterally as well as 1+ pitting edema in abdomen Respiratory: Significantly decreased breath sounds in all lung hussein, no wheezing rales or rhonchi noted Abdomen: Soft, nontender, distended, + bowel sounds, tympanic to percussion Neuro: Alert, no facial droop, tongue midline Psych: appropriate affect Skin: no rashes on face, neck, and lower extremities Lab and Diagnostics Labs Labs November 06: Magnesium 2.1 Labs November 05: ProBNP greater than 3100, albumin 3.9, magnesium 1.5 Per [facility] records:11/05/2016 2.60 INR, 10/31/2016 5.90 INR, 10/24/2016 1.30 INR , 10/22/2016 1.50 INR Result Diagram: 11/06/16 0505 11/06/16 0505 X-Rays, CTs and MRIs X-RAY CHEST ONE VIEW, PORTABLE ([id number]) IMPRESSION: No acute cardiopulmonary disease. Dictated by: Jason Grover RRA Interpreted: Eileen Prajapati MD on 11/06/2016 at 9:03 Transcribed by: NORMA on 11/06/2016 at 9:03 12-lead ECG ECG 11/05/2016 shows atrial flutter/atrial fibrillation with RVR heart rate 139 , low voltage and extremity leads nut grader from November 05 to November 06 shows A. fib/flutter with heart rates from the 80s to 110s, with tachycardia for approximately 10 minutes in the a.m. with significant artifact due to motion Additional Diagnostics: Echocardiogram Report Interpretation Summary The left ventricle is normal in size. Left ventricular systolic function is mildly reduced. The ejection fraction is estimated to be 45-50%. There has been no significant change since the previous study. There is basal inferior wall akinesis. There is mid inferior wall hypokinesis. The right ventricle is normal in size and function. The right ventricular systolic pressure is estimated at 46 mmHg assuming a right atrial pressure of 15 mm Hg. Compared to the prior echo exam, there has been an increase in the severity of pulmonary hypertension. The left atrium is severely dilated. The right atrium is moderately dilated. There is no significant valvular heart disease. The aortic root is normal size. Reading Physician:PM Echocardiogram Report Interpretation Summary Left ventricular systolic function is moderately reduced. Spontaneous contrast in LA. No thrombus is detected in the left atrial appendage. There is severe biatrial enlargement. There is mild to moderate mitral regurgitation. The aortic valve is normal in structure and function. There is mild tricuspid regurgitation. Electronically signed by: Speedy Ku on Reading Physician:10/10/2016 03:12 PM Assessment & Plan Assessment Pt is a 56 y/o male anticoagulated on Warfarin w/ a hx of A-fib, Cardiomyopathy with diastolic heart failure, tricuspid regurgitation, COPD, HTN, presenting to the [facility] ED with increased abdominal girth and lower extremity swelling with shortness of breath. # Persistent Atrial fibrillation with RVR: Likely etiology is due to severe biatrial enlargement. The patient is in the process of titrating down amiodarone from 600 mg beginning October 29 currently on amiodarone 400 mg with a plan for eventual 200 mg daily. The patient is also on metoprolol succinate 100mg mg daily.The patient had a JUANCARLOS assisted cardioversion on October 10 but subsequently converted back to atrial fibrillation within 2 weeks. The patient has been on warfarin therapy and has been monitored weekly with INRs however on October 24 his INR was subtherapeutic at 1.3. The patient is becoming tired of his routine INR checks and difficulty in controlling his warfarin levels. - Discontinue warfarin and initiate apixaban when INR is < 2 per literature review - Nothing by mouth after midnight November 06 - Plan for JUANCARLOS or cardioversion on November 07 - Metoprolol Tartrate 25mg BID and diltiazem drip started by primary team 10/06 - Single one time dose of Metoprolol Tartrate 50mg today 10/07 and discontinue diltiazem drip one hour later, then monitor heart rate and adjust to Metoprolol Succinate 50mg BID - May restart diltiazem drip if patient returns to Afib with RVR before night dose of metoprolol succinate 50mg - We will likely discontinue amiodarone post cardioversion depending on results , and simply attempt rate control with metoprolol succinate 50mg BID # Heart failure with reduced ejection fraction 45-50%: Patient is currently on outpatient therapy including metoprolol succinate 50 twice a day, lisinopril 10 mg daily, furosemide 20 mg daily, spironolactone 25 mg daily. The patient has notable mild anasarca on physical exam. Patient received 1 dose of furosemide 80 mg IV November 05. The patient currently has a poor understanding of his need to balance his fluid intake and body weight daily. - Referral to CHF clinic - Metoprolol Tartrate 50mg now and discontinued Diltiazem drip and monitor heart rate, restart diltiazem drip if return to Afib with RVR - Continue furosemide 80 mg IV daily with daily monitoring of BMP and blood pressures - as above change Metoprolol Tartrate to Metoprolol succinate 50 mg twice a day with goal of 100mg daily - Continue Lisinopril 10 mg daily - Continue Spironolactone 25 mg daily - Adjust outpatient dosing of Lasix for patient's daily weight prior to discharge with help CHF clinic # Severe Pulmonary hypertension: Echo performed on 09/11/2016 shows RV systolic pressure estimated at 46 mmHg - Treat underlying cause including heart failure cardiomyopathy as well as COPD - Patient will require close follow-up as an outpatient # COPD: Patient is on daily Symbicort as well as albuterol rescue inhaler - Continue daily Symbicort - When necessary albuterol rescue inhaler as needed - Close follow-up as an outpatient with PCP Dr. Lawrence Garcia - encouraged quitting smoking # Tobacco dependence: Significant time was spend educating the patient on the benefits of quitting smoking. Cardiology Plan: Cardioversion (JUANCARLOS) Pain Evaluation: Adequate Pain Control VTE Prophylaxis: Theraputic Anticoag with Warfarin Resuscitation Status: CPR: Attempt Resuscitation Attending Statement I saw, examined, and evaluated the patient with Dr. Daron Still on 11/06 and agree with the note as above along with my edits. Daron Still DO November 06, 2016 10:54 Benjamín Zambrano MD November 07, 2016 10:03
[2016-11-06] MEDS ORDERED: APIX5TAB PO (12:05)
--- NOTE | 2016-11-06 14:57 | PCM.PNMED ---
Subjective Date of Service November 06, 2016 Subjective Vish Camarena is a Pt is a 56-year-old male with past medical history significant for A-fib on warfarin, CHF, tricuspid regurgitation, COPD, HTN, presenting to the ED c/o SOB with abdominal swelling and discomfort, onset 2 weeks. Currently under treatment for A. fib with RVR. Hospital day #1. Today: Patient states that he is feeling better. He denies any shortness of breath. He does note that while his heart rate is well controlled right now as soon as he starts to exert himself it increases significantly. This is been a problem for him at home as well. He does note lower extremity edema which is chronic for him. He denies any fevers, chills, cough, abdominal pain. The remainder of review of systems is negative except as noted above. Exam Vital Signs Vital Sign - Last Date Time Temp Pulse Resp B/P Pulse Ox O2 Delivery O2 Flow Rate FiO2 11/06/16 12:31 36.7 95 23 117/78 95 Nasal Cannula 2.00 Intake and Output 11/05/16 11/05/16 11/06/16 Cumulative From/Thru 15:00 23:00 07:00 11/05/16 21:52 - 11/06/16 04:19 Output Total 1900 ml 1900 ml Balance -1900 ml -1900 ml Output Urine Total 1900 ml 1900 ml Exam General: Alert, Oriented X3, Cooperative, No acute distress. HEENT: PERRLA, EOMI, No scleral icterus, Conjunctiva normal, Mucous Membrane Moist/Ava, missing teeth. Nasal cannula on. Neck: Supple, trachea midline, no JVD noted. Questionable hepatojugular reflux noted Chest & Lungs: Clear to auscultation bilaterally however breath sounds are reduced. No respiratory distress. Cardiovascular: Irregular rate, normal pulse. No murmurs appreciated. Abdomen: Non-tender, Non-distended, Obese, soft Extremities: No cyanosis/clubbing bilat, moderate pitting edema extending up to lower abdomen Skin: Warm, Dry, No cyanosis Neurological: no focal deficits Psychiatric: Mood/affect normal, Behavior normal, Normal thought content IVs and Medications Medications Reviewed: Medications were reviewed in detail Lab and Diagnostics Result Diagram: 11/06/16 0505 11/06/16 0505 X-Rays, CTs and MRIs Chest Xray Interpretation: Heart size at upper end of normal. Minor interstitial markings Overall unremarkable chest x-ray View: Portable, 1 view Interpretation / Wet Read by: Wet read ED physician 12-lead ECG ECG Interpretation: Atrial fibrillation rate 139 Time: 22:53 Interpreted by: ED physician Normal ECG Interpretation: No acute ischemic changes Assessment & Plan Vish Camarena is a Pt is a 56-year-old male with past medical history significant for A-fib on warfarin, CHF, tricuspid regurgitation, COPD, HTN, presenting to the ED c/o SOB with abdominal swelling and discomfort, onset 2 weeks. Currently under treatment for A. fib with RVR. Hospital day #1. Acute on chronic failure with reduced EF, EF 45% with noted anasarca, present on admission. Unstable. 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 Patient had marked echocardiographic improvement of improving to 45% subsequent to medical management. - Transesophageal echo from September 2016 showed moderately reduced left ventricular systolic function, severe biatrial enlargement transthoracic echocardiogram from August 2016 showed an EF of 45-50%. - Recent changes made to his furosemide dosing per cardiology, decreasing his furosemide from 40 mg daily to 20 mg daily on 10/29/2016 - Continue metoprolol succinate, spironolactone, lisinopril - Furosemide 80 mg IV daily - Strict I&O's with standing daily weights. CHF clinic referral. Atrial fibrillation with RVR, present on admission. Acute. - Recent changes made to his amiodarone dosing per cardiology, patient currently states he is on 200 mg 2 tablets daily, to be decreased to 1 tablet daily in another week and a half - Cardiology consulted. We will follow recommendations. - [id number] score 2 currently anticoagulated on warfarin, per cardiology patient will be switched to Apixaban - Cardizem drip to the titrated off per cardiology. Patient's metoprolol succinate increased to 50 mg twice a day. - Plan for JUANCARLOS cardioversion on 11/07 Acute respiratory distress without hypoxia in the setting of severe pulmonary hypertension and COPD, present on admission. Improving. - Most likely multifactorial due to COPD, poor control of CHF and A. fib with RVR. - Will treat heart failure and A. fib rate control which has led to improvement of patient's sensation of shortness of breath Hypomagnesemia, present on admission. Resolved Chronic conditions: COPD - continue home dose of Symbicort Hyperlipidemia - continue home dose of atorvastatin, fenofibrate Hypertension - continue home dose metoprolol succinate, lisinopril, spironolactone GERD - continue home dose of omeprazole Psoriasis Nicotine dependence with ongoing cigarette smoking - cessation discussed and encouraged Acetaminophen-fever/headache/mild/moderate pain Antiemetics, as needed Bowel regimen, as needed. Disposition: Anticipate the patient will be in the hospital for 2-3 more days as he is evaluated and treated for the above conditions. VTE Prophylaxis: Theraputic Anticoag with Warfarin Resuscitation Status: CPR: Attempt Resuscitation Attending Statement I interviewed and examined the patient on rounds today. I agree with the assessment and plan as stated above. Shelli Devries DO November 06, 2016 14:13 Tomas Bowie MD November 06, 2016 17:13
--- NOTE | 2016-11-06 15:46 | NUR ---
Social Work Note: Order to run prescription MISSY received order to run Elequis prescription through pt preferred pharmacy [facility] in [place] for coverage. Pharmacist Prabha confirmed that pt will have a $22 co-pay for Elequis. notified. LEEROY Alicea
[2016-11-06] MEDS ORDERED: [UNRECOGNIZED DRUG - OTHER] PO (15:47)
[2016-11-06] MEDS ORDERED: METO-274 PO (15:47)
[2016-11-06] MEDS: Furosemide 10 mg/mL 10 mL Inj IVPUSH SCH (15:48)
--- NOTE | 2016-11-06 16:17 | NUR ---
Social Work Note: Screen Note Data& Assessment: EMR reviewed. Vish Camarena is a 56 year old male admitted on .11/06/2016 for AFIB with RVR per MD in morning rounds. Pt lives on [address] with his spouse and independent at baseline. Pt has [employer] insurance coverage and sees Lawrence Garcia DO for primary care. SW received order to run prescription for Eliquis at pt preferred pharmacy, [facility] in [place]. Per Pharmacist in [place], pt would have a co-pay of $22. MD notified. SW to continue to follow for any other MD orders and DC planning needs. No other discharge needs identified at this time. SW to continue to follow. Plan: Anticipated discharge home via POV when medically ready. SW to continue to follow for any other MD orders and DC planning needs. No other discharge needs identified at this time. SW to continue to follow. LEEROY Alicea
--- NOTE | 2016-11-06 16:30 | NUR ---
Multidisciplinary Communication 0930 - Discussed his care with Dr. Devries, Dr. Bowie, and the rest of the multidisciplinary care team during morning rounds. Notified Dr. Devries that there did not appear to be any anticoagulation medications ordered for him. She said she'd look into it. 1350 - Dr. Still stopped by to say that he wanted the Diltiazem drip stopped an hour after his one time afternoon dose of PO Metoprolol was administered. He said that if the patient's heart rate increased to A-fib RVR again to contact the Hospitalist team who could order the Diltiazem drip to be restarted. The Metoprolol had been given about 1300 and so the Diltiazem drip was stopped about 1400. 1500 - Noted that a one time order for IV Lasix had been ordered. Went to obtain it from the [facility], but both did not list Lasix under his name. Spoke to a Pharmacist who said she would have it sent up from Pharmacy. 1548 - It was sent up and given. 1620 - Orthostatic blood pressures obtained. No significant drop in blood pressure noted. Care continues. Addendum: 11/06/16 at 1835 by CLARY SAN RN 8 - Paged Dr. Bowie as the pt had asked if he was going to be getting any Warfarin. Dr. Bowie placed an order for Pharmacy to give him Warfarin and to adjust his dose. Informed the pt of this. Care continues. Addendum: 11/06/16 at 7 by CLARY SAN RN 1844 - Spoke to Pharmacist Eren who was double checking his Warfarin dose with this nurse and making sure he wasn't bleeding. Care continues.
--- NOTE | 2016-11-06 18:56 | PCM.CONPHA ---
Subjective Date of Service: November 06, 2016 Fluid retention and swelling Reason for Pharmacy Consult: Anticoagulation Management Objective Vital Signs Date Time Temp Pulse Resp B/P Pulse Ox O2 Delivery O2 Flow Rate FiO2 11/06/16 16:22 36.3 100 123/76 11/06/16 16:21 36.3 91 132/77 11/06/16 16:20 36.3 88 23 129/78 92 Nasal Cannula 2.00 11/06/16 12:31 36.7 95 23 117/78 95 Nasal Cannula 2.00 11/06/16 11:16 90 11/06/16 08:27 36.5 91 23 138/77 88 Room Air 11/06/16 08:27 Chest Tubes 11/06/16 07:30 83 20 90 Room Air 11/06/16 07:30 91 11/06/16 04:29 105 11/06/16 04:16 36.4 113 16 132/96 96 Room Air 11/06/16 04:00 101 23 149/95 94 Room Air 11/06/16 03:03 114 25 152/94 93 Room Air 11/06/16 00:35 127 11/06/16 00:30 127 141/86 11/05/16 23:59 143 11/05/16 23:24 147 26 135/78 93 Room Air 11/05/16 21:52 144 26 143/97 92 Room Air Weight (Kilograms): 106.100 Height (Feet): 6 Height (Inches): 1.00 Test 11/05/16 22:40 11/06/16 05:05 Prothrombin Time 31.1sec (8.1-12.5) Prothromb Time International Ratio 2.85ratio Activated Partial Thromboplast Time 30.5sec (22.8-33.0) D-Dimer < 0.50mg/L FEU (<0.50) Total Bilirubin 0.8mg/dL (0.0-1.2) Aspartate Amino Transf (AST/SGOT) 36U/L (0-50) Alanine Aminotransferase (ALT/SGPT) 33U/L (0-44) Alkaline Phosphatase 65U/L (25-150) Troponin T 0.010ug/L (0.0-0.011) Pro-B-Type Natriuretic Peptide 3129pg/mL (0-210) Total Protein 7.4g/dL (6.4-8.4) Albumin 3.9g/dL (3.4-5.0) Hold Wheeler Top Tube Received (Received) White Blood Count 8.6th/mm3 (3.8-10.1) Red Blood Count 4.56mil/mm3 (4.40-5.80) Hemoglobin 14.9g/dL (13.8-17.2) Hematocrit 43.8% (41.0-50.0) Mean Corpuscular Volume 96.1fL (81-100) Mean Corpuscular Hemoglobin 32.7pg (27.0-35.0) Mean Corpuscular Hemoglobin Concent 34.0% (32.0-37.0) Red Cell Distribution Width 14.1% (12.3-15.4) Platelet Count 182bil/L (150-400) Neutrophils (%) (Auto) 63.5% (40-74) Lymphocytes (%) (Auto) 22.3% (14-46) Monocytes (%) (Auto) 10.4% (4-12) Eosinophils (%) (Auto) 2.4% (0-5) Basophils (%) (Auto) 0.9% (0-3) Sodium Level 141mEq/L (134-144) Potassium Level 3.9mEq/L (3.5-5.2) Chloride Level 98mEq/L (97-108) Carbon Dioxide Level 28mmol/L (18-29) Blood Urea Nitrogen 22mg/dL (6-24) Creatinine 1.25mg/dL (0.76-1.27) Estimat Glomerular Filtration Rate 64mL/min (>59) Glucose Level 113mg/dL (60-99) Calcium Level 9.3mg/dL (8.5-10.1) Magnesium Level 2.1mg/dL (1.6-2.6) Assessment/Plan Assessment/Plan WARFARIN MANAGEMENT A\ 56yo M here for anasarca with histroy of AFib w/ RVR. Goal INR 2-3 current INR=2.85 HCT=43.8 Wzf=879, no bleeding Home dose Warfarin 1.25mg po daily P\ Currently therapeutic on INR. Will continue home dose Warfarin 1.25mg po tonight and check an INR with AM labs. Pharmacy will continue to monitor and adjust as needed. Eren Sidhu [facility] November 06, 2016 18:56
[2016-11-06] MEDS: MeTOProlol XL 50 mg ER24 Tablet PO SCH (21:01)
[2016-11-07] VITALS (23 sets, daily range): BP systolic 108–144; BP diastolic 66–95; PULSE 78–118; RESP 12–26; O2SAT 90–100
[2016-11-07] MEDS: Sodium Chloride LOK Flush 10 mL Syringe IVFLUSH SCH ×3 (00:30→17:32)
[2016-11-07] MEDS: Diltiazem Inj 125 MG in 0.9% Sodium Chloride 100 ML, Pharmacy To Mix 1 EA IV SCH (02:30)
--- NOTE | 2016-11-07 03:15 | NUR ---
NPO/Tele Is NPO for cardioversion in AM, on room air, Saline locked , content and compliant. Telemetry, A-Fib 102
[2016-11-07 03:39] LABS: EOSINOPHILS % (AUTO) 4.5 % (0-5); Mean Corpuscular Hemoglobin 32.2 pg (27.0-35.0); Mean Corpuscular Volume 94.8 fL (81-100); NEUTROPHILS % (AUTO) 56.8 % (40-74); Platelet Count 175 bil/L (150-400)
[2016-11-07 04:04] LABS: INR 1.74 ratio
[2016-11-07] MEDS: Fluticasone-Salmeterol 500-50 Inhaler INHALATION SCH ×2 (08:18→20:11)
[2016-11-07] MEDS: MeTOProlol XL 50 mg ER24 Tablet PO SCH ×2 (08:25→20:11)
[2016-11-07] MEDS: Furosemide 10 mg/mL 10 mL Inj IVPUSH SCH (08:25)
[2016-11-07] MEDS: Pantoprazole 20 mg ER24 Tablet PO SCH (08:25)
[2016-11-07] MEDS ORDERED: Phytonadione (Adult) 10 mg/1 mL Inj PO ONE (10:05)
--- NOTE | 2016-11-07 13:41 | PCM.PNMED ---
Subjective Date of Service November 07, 2016 Subjective Vish Camarena is a Pt is a 56-year-old male with past medical history significant for A-fib on warfarin, CHF, tricuspid regurgitation, COPD, HTN, presenting to the ED c/o SOB with abdominal swelling and discomfort, onset 2 weeks. Currently under treatment for A. fib with RVR. Hospital day #2. Overnight: No acute events. Today: Patient is scheduled for a JUANCARLOS cardioversion this morning. He states that he is feeling fine when he is at rest but says he when exerts himself his atrial fibrillation is up to rates of 140s 150s and he starts to feel short of breath and uncomfortable. His only concern currently is that he is quite hungry. The remainder of review of systems is negative except as noted above. Exam Vital Signs Vital Sign - Last Date Time Temp Pulse Resp B/P Pulse Ox O2 Delivery O2 Flow Rate FiO2 11/07/16 12:03 36.5 118 18 108/70 93 Room Air 11/06/16 16:20 2.00 Intake and Output 11/06/16 11/06/16 11/07/16 Cumulative From/Thru 15:00 23:00 07:00 11/05/16 21:52 - 11/07/16 06:10 Intake Total 1072 ml 400 ml 1472 ml Output Total 1850 ml 1000 ml 4750 ml Balance -778 ml -600 ml -3278 ml Intake Oral 1072 ml 400 ml 1472 ml Output Urine Total 1850 ml 1000 ml 4750 ml # Bowel Movements 1 1 Exam General: Alert, Oriented X3, Cooperative, No acute distress. HEENT: PERRLA, EOMI, No scleral icterus, Conjunctiva normal, Mucous Membrane Moist/[place], missing teeth. Nasal cannula on. Neck: Supple, trachea midline, no JVD noted. Chest & Lungs: Clear to auscultation bilaterally however breath sounds are reduced. No respiratory distress. Cardiovascular: Irregular rate, normal pulse. No murmurs appreciated. Abdomen: Non-tender, Non-distended, Obese, soft Extremities: No cyanosis/clubbing bilat, moderate pitting edema extending up to lower abdomen Skin: Warm, Dry, No cyanosis Neurological: no focal deficits Psychiatric: Mood/affect normal, Behavior normal, Normal thought content IVs and Medications Medications Reviewed: Medications were reviewed in detail Lab and Diagnostics Result Diagram: 11/07/16 0325 11/07/16 0325 X-Rays, CTs and MRIs X-RAY CHEST ONE VIEW, PORTABLE IMPRESSION: No acute cardiopulmonary disease. Dictated by: Jason PORTER Interpreted: Eileen Prajapati MD on 11/06/2016 at 9:03 Assessment & Plan Vish Camarena is a Pt is a 56-year-old male with past medical history significant for A-fib on warfarin, CHF, tricuspid regurgitation, COPD, HTN, presenting to the ED c/o SOB with abdominal swelling and discomfort, onset 2 weeks. Currently under treatment for A. fib with RVR. Hospital day #1. Acute on chronic failure with reduced EF, EF 45% with noted anasarca, present on admission. Improving. 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 Patient had marked echocardiographic improvement of improving to 45% subsequent to medical management. - Transesophageal echo from September 2016 showed moderately reduced left ventricular systolic function, severe biatrial enlargement transthoracic echocardiogram from August 2016 showed an EF of 45-50%. - Recent changes made to his furosemide dosing per cardiology, decreasing his furosemide from 40 mg daily to 20 mg daily on 10/29/2016 - Continue metoprolol succinate, spironolactone, lisinopril - Furosemide 80 mg IV daily - Strict I&O's with standing daily weights. CHF clinic referral. - Cardiology consulted. We will follow recommendations. Atrial fibrillation with RVR, present on admission. Acute. - Recent changes made to his amiodarone dosing per cardiology, patient currently states he is on 200 mg 2 tablets daily, to be decreased to 1 tablet daily in another week and a half - Cardiology consulted. We will follow recommendations. - [id number] score 2 currently anticoagulated on warfarin, per cardiology patient will be switched to Apixaban - Cardizem drip titrated off per cardiology. Patient's metoprolol succinate increased to 50 mg twice a day. - Plan for JUANCARLOS cardioversion on 11/07. Acute respiratory distress without hypoxia in the setting of severe pulmonary hypertension and COPD, present on admission. Improving. - Most likely multifactorial due to COPD, poor control of CHF and A. fib with RVR. - Will treat heart failure and A. fib rate control which has led to improvement of patient's sensation of shortness of breath Hypomagnesemia, present on admission. Resolved Chronic conditions: COPD - continue home dose of Symbicort Hyperlipidemia - continue home dose of atorvastatin, fenofibrate Hypertension - continue home dose metoprolol succinate, lisinopril, spironolactone GERD - continue home dose of omeprazole Psoriasis Nicotine dependence with ongoing cigarette smoking - cessation discussed and encouraged Acetaminophen-fever/headache/mild/moderate pain Antiemetics, as needed Bowel regimen, as needed. Disposition: Anticipate the patient will be in the hospital for 1-2 more days as he is evaluated and treated for the above conditions. VTE Prophylaxis: Theraputic Anticoag with Warfarin Resuscitation Status: CPR: Attempt Resuscitation Attending Statement I interviewed and examined the patient on rounds today. I agree with the assessment and plan as stated above. Shelli Devries DO November 07, 2016 13:36 Tomas Bowie MD November 07, 2016 16:04
[2016-11-07] MEDS ORDERED: Methohexital 10 mg/mL 50 mL Inj ONE (14:31)
[2016-11-07] MEDS ORDERED: Flumazenil 0.1 mg/mL 5 mL Inj IV ONE (14:32)
[2016-11-07] MEDS ORDERED: Atropine 1 mg/10 mL (Code) Syringe ONE (14:32)
[2016-11-07] MEDS ORDERED: fentaNYL-PF 50 mCg/mL 2 mL Inj ONE (14:32)
--- NOTE | 2016-11-07 14:56 | NUR ---
Received Received from floor at 1440. VSS. Tele Afib with PVC's rate 116. Denies pain. IV site clear and functional. Awaiting Echo.
--- NOTE | 2016-11-07 15:50 | PCM.PROC ---
Procedure Note Date of Service: November 07, 2016 Pre Procedure Diagnosis: Atrial fibrillation with rapid ventricular response. Symptomatic. Post Procedure Diagnosis: Atrial fibrillation with successful conversion to sinus rhythm. Procedure: DC Cardioversion Findings: Successful cardioversion from atrial fibrillation to sinus rhythm. Procedural Analgesia: Brevital 40mg IV X1 Procedure Details: After JUANCARLOS showed no left atrial and left appendage thrombus, patient received deep sedation and 200J of synchronized energy that converted his rhythm from atrial fibrillation to sinus rhythm. No complications. Post Procedure Plan: 1) Continue metoprolol succinate 2) Continue eliquis 5mg twice daily 3) Consider low dose amiodarone chronically copies to: Inés Montilla MD, Bhrigu R MD November 07, 2016 15:50
--- NOTE | 2016-11-07 16:35 | DRSVH ---
[facility] [address] [place] [address] Echocardiogram Report Name: MARCO ADEN Date : 11/07/2016 [facility] Exam Location: [facility] Gender: Male : 1960 Age: 56 yrs Reason For Study: Atrial fibrillation Ordering Physician: Performed By: Tatyana Gonzalez Interpretation Summary Spontaneous contrast in LA. No thrombus is detected in the left atrial appendage. Procedure: Informed consent for Transesophageal Echocardiogram, and use of a contrast agent as needed, was obtained prior to the procedure. The patient was brought to the [facility] in a fasting state. IV concious sedation was administered using versed and fentanyl. A multifrequency, multiplane transesopheageal echocardiographic endoscope was inserted and manipulated in the standard fashion to achieve multiplane views. The transesophageal probe was passed without difficulty. A 2D transesophageal echocardiogram with spectral and color flow Doppler was performed. The patient's vital signs, including blood pressure, heart rate, pulse oximetry and cardiac rhythm were monitored throughout the procedure and remained stable. The patient tolerated the procedure well without evidence of orophangeal or esophageal trauma. There were no complications. Atria: No thrombus is detected in the left atrial appendage. Spontaneous contrast in LA. Aortic Valve: The aortic valve is trileaflet. Reading Physician:04:34 PM
--- NOTE | 2016-11-07 16:50 | NUR ---
Procedure/Recovery/Transfer JUANCARLOS commenced around 1515 with numbing. Versed 2mg and Fentanyl 75mg IVP given. Pt. tolerated well with stable VS. MD states no clot. Cardioversion done around 1543 after Brevital 40mg. Cardioverted with 200J x1 to SR in 70's and 80's. Awake with stable VS by 1605. O2 weaned to Off with SPO2 91-92%. See flowsheets for exact timing of meds and VS. Denies pain though states skin is a little tender where patches were. Skin slightly pink in those areas. Instructions for skin care given. Transported to 2028 via w/c at 1630 after alerting Lakeisha Oneill RN. Bedside report given including dietary cautions until all feeling back in throat. Dr. Zambrano left written information on Eliquis for pt. and RN notified as well as pt.
--- NOTE | 2016-11-07 19:33 | NUR ---
Return from [facility] Pt returned with no c/o pain or discomfort. Tele revealed SR in the 80s. Pt states he no longer feels the rapid heartbeat or the discomfort that he felt before. Pt is anxious and ready to go home.
[2016-11-08] MEDS: Diltiazem Inj 125 MG in 0.9% Sodium Chloride 100 ML, Pharmacy To Mix 1 EA IV SCH (00:27)
[2016-11-08] MEDS: Sodium Chloride LOK Flush 10 mL Syringe IVFLUSH SCH ×2 (00:27→08:41)
[2016-11-08 00:35] VITALS: BP 107/69; PULSE 77; RESP 16; O2SAT 90
--- NOTE | 2016-11-08 01:05 | NUR ---
REST Pt unable to rest, but denies pain. SR 70's, VSS, uneventful night, no other issues noted at this time.
[2016-11-08 04:58] LABS: INR 1.57 ratio
[2016-11-08 05:24] VITALS: PULSE 71
[2016-11-08 05:48] VITALS: BP 124/79; PULSE 73; RESP 17; O2SAT 94
[2016-11-08 08:00] VITALS: PULSE 78
[2016-11-08 08:38] VITALS: BP 124/67; PULSE 78; RESP 20; O2SAT 97
[2016-11-08] MEDS: MeTOProlol XL 50 mg ER24 Tablet PO SCH (08:40)
[2016-11-08] MEDS: Fluticasone-Salmeterol 500-50 Inhaler INHALATION SCH (08:41)
[2016-11-08] MEDS: Pantoprazole 20 mg ER24 Tablet PO SCH (08:49)
[2016-11-08] MEDS: Furosemide 10 mg/mL 10 mL Inj IVPUSH SCH (08:49)
--- NOTE | 2016-11-08 09:11 | PCM.PNCARD ---
Subjective Date of service November 08, 2016 Chief Complaint Fluid retention and swelling History of Present Illness Pt is a 56 y/o male anticoagulated on Warfarin w/ a hx of A-fib, Cardiomyopathy and diastolic heart failure, tricuspid regurgitation, COPD, HTN, presenting to the [facility] ED with increased abdominal girth and lower extremity swelling with shortness of breath. The patient is typically seen by Dr. Montilla last on 10/29, he has recently been titrating down on oral Amiodarone and Lasix. Furosemide was decreased from 40 mg by mouth daily to 20 mg daily. Patient states overall swelling had continued to get worse since then and got to a point where he was too uncomfortable and then to the ED. The patient believes his trial fibrillation is causing the majority of his symptoms including abdominal and lower extremity swelling, intermittent right sided chest pain, intermittent nausea and shortness of breath. The patient has a history of COPD and is on Symbicort daily as well as an albuterol rescue inhaler which he avoids using due to tachycardia. The patient was seen in [facility] for JUANCARLOS cardioversion on 10/10 however converted back to atrial fibrillation within 2 weeks. The patient has had significant difficulties in controlling his INR with fluctuations reported as high as an INR of 10 and lows down to subtherapeutic 1.3. The patient has had an ablative procedure in the past which resulted in 6 months of normal sinus rhythm. Subjective: Patient states that he feels significantly better after cardioversion. The patient states that he is breathing better and his legs are decreasing in size. The patient is happy to hear that his Apixaban prescription will be free the first month and reportedly $22 per social work's effort every month after. 11-point ROS: 11-point Review of Systems negative Exam Vital Signs Vital Sign - Last Date Time Temp Pulse Resp B/P Pulse Ox O2 Delivery O2 Flow Rate FiO2 11/08/16 08:38 36.6 78 20 124/67 97 Nasal Cannula 1.00 Intake and Output 11/07/16 11/07/16 11/08/16 Cumulative From/Thru 15:00 23:00 07:00 11/05/16 21:52 - 11/08/16 05:48 Intake Total 200 ml 360 ml 2032 ml Output Total 1275 ml 6025 ml Balance -1075 ml 360 ml -3993 ml Intake Oral 200 ml 360 ml 2032 ml Output Urine Total 1275 ml 6025 ml # Voids 4 4 # Bowel Movements 0 1 2 Additional Information: General appearance: Middle age male chronically ill appearing in no apparent distress, pleasant, cooperative HEET: Normocephalic atraumatic, no scleral icterus, tongue midline, mucous membranes moist, poor dentition Neck: supple, no JVD, no carotid bruits Cardiovascular: RRR, normal S1 and normal S2, no murmurs/rubs/gallops, PMI nondisplaced, no JVD, mild 1+ pitting peripheral edema in lower extremities bilaterally Respiratory: Significantly improved breath sounds with better air movement and very mild rales in the bases bilaterally, no wheezing or rhonchi noted Abdomen: Soft, nontender, distended, + bowel sounds, tympanic to percussion Neuro: Alert, no facial droop, tongue midline Psych: appropriate affect Skin: warm and dry, no cyanosis Lab and Diagnostics Labs labs from 11/08 INR 1.57 Result Diagram: 11/07/16 0325 11/07/16 0325 X-Rays, CTs and MRIs X-RAY CHEST ONE VIEW IMPRESSION: No acute cardiopulmonary disease. Dictated by: Jason Grover RRA Interpreted: Eileen Prajapati MD on 11/06/2016 at 9:03 Transcribed by: NORMA on 11/06/2016 at 9:03 Approved by: Eileen Prajapati M.D. 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 Left ventricular systolic function is mildly reduced. The ejection fraction is estimated to be 45-50%. There has been no significant change since the previous study. There is basal inferior wall akinesis. There is mid inferior wall hypokinesis. The right ventricle is normal in size and function. The right ventricular systolic pressure is estimated at 46 mmHg assuming a right atrial pressure of 15 mm Hg. Compared to the prior echo exam, there has been an increase in the severity of pulmonary hypertension. The left atrium is severely dilated. The right atrium is moderately dilated. There is no significant valvular heart disease. The aortic root is normal size. Reading Physician:PM Echocardiogram Report Interpretation Summary Left ventricular systolic function is moderately reduced. Spontaneous contrast in LA. No thrombus is detected in the left atrial appendage. There is severe biatrial enlargement. There is mild to moderate mitral regurgitation. The aortic valve is normal in structure and function. There is mild tricuspid regurgitation. Electronically signed by: Speedy Ku on Reading Physician:10/10/2016 03:12 PM Echocardiogram Report Interpretation Summary Spontaneous contrast in LA. No thrombus is detected in the left atrial appendage. Reading Physician:04: 34 PM Assessment & Plan Assessment Pt is a 56 y/o male previously anticoagulated on Warfarin w/ a hx of A-fib, Cardiomyopathy with diastolic heart failure, tricuspid regurgitation, COPD, HTN , presenting to the [facility] ED with increased abdominal girth and lower extremity swelling with shortness of breath. # Persistent Atrial fibrillation with RVR: Likely etiology is due to severe biatrial enlargement. The patient was in the process of titrating down amiodarone from 600 mg beginning October 29 currently on amiodarone 200 mg with. The patient is also on metoprolol succinate 50mg BID.The patient had a JUANCARLOS assisted cardioversion on October 10 but subsequently converted back to atrial fibrillation within 2 weeks. The patient has been on warfarin therapy and has been monitored weekly with INRs however on October 24 his INR was subtherapeutic at 1.3. - Discontinued warfarin and initiate apixaban 5mg BID. 30 day free coupon card given for first month and then $10/month copay card can be used (also given) - JUANCARLOS cardioversion on November 07 - Increase metoprolol succinate from 50mg BID to 50mg qAM and 100mg qhs - Amiodarone 200mg daily # Heart failure with reduced ejection fraction 45-50%: Patient is currently on outpatient therapy including metoprolol succinate 50 twice a day, lisinopril 10 mg daily, furosemide 20 mg daily, spironolactone 25 mg daily. The patient had notable mild anasarca on physical exam. The patient currently has a poor understanding of his need to balance his fluid intake and body weight daily. - Metoprolol XL as abover - Continue Lisinopril 10 mg daily - Continue Spironolactone 25 mg daily - Continue furosemide home dose daily # Pulmonary hypertension: Echo performed on 09/11/2016 shows RV systolic pressure estimated at 46 mmHg - Treat underlying cause including afib, heart failure cardiomyopathy, as well as COPD - Patient will require close follow-up as an outpatient # COPD: Patient is on daily Symbicort as well as albuterol rescue inhaler - Continue daily Symbicort - When necessary albuterol rescue inhaler as needed - Close follow-up as an outpatient with PCP Dr. Lawrence Garcia - encouraged quitting smoking # Tobacco dependence: Significant time was spend educating the patient on the benefits of quitting smoking. F/U with cardiology mid-level or Dr. Montilla in 2-4 weeks. Problems: Cardiology Plan: Cardioversion (JUANCARLOS performed on 11/07) Pain Evaluation: Adequate Pain Control VTE Prophylaxis: Theraputic Anticoag with Warfarin Resuscitation Status: CPR: Attempt Resuscitation Attending Statement I saw, examined, and evaluated the patient with Dr. Daron Still on 11/08 and agree with the note as above along with my edits. Daron Still DO November 08, 2016 09:11 Benjamín Zambrano MD November 08, 2016 11:07
[2016-11-08 11:08] VITALS: BP 93/58; PULSE 80; RESP 16; O2SAT 93
[2016-11-08] MEDS ORDERED: METO50TA3 PO (11:10)
[2016-11-08] MEDS ORDERED: METO100T3 PO (11:10)
--- NOTE | 2016-11-08 11:16 | PCM.DIMED ---
Discharge Instructions Date of Service November 08, 2016 Dates of Hospitalization November 06, 2016 at 02:30 Discharge Diagnosis Discharge Diagnosis Atrial fibrillation with rapid ventricular response; acute systolic congestive heart failure Medication Instructions Additional med instructions Add additional afternoon dose of lasix 40mg for 5-pound weight gain from baseline, and stop Lasix 40mg for 5-pound weight loss from baseline, until your weight returns to baseline then resume Lasix. Continue with amiodarone as per your previous schedule. Metoprolol doses have been changed to 100 at night and 50 in the morning. . Diet Discharge Diet: Heart Healthy Activity Discharge Activity: Limited until seen by PCP Call your provider Call your provider for: Shortness of breath, Chest pain Patient Instructions Patient Instructions Low-sodium diet with regular monitoring of your body weight. Follow-up plan Contact cardiology clinic for hospitalization follow-up appointment with [facility] Follow-up Provider: Lawrence Garcia DO Follow-up with PCP in: 1 week Provider: Inés Montilla MD, Jeffrey W MD November 08, 2016 11:16
[2016-11-08] MEDS ORDERED: FURO40TA4 PO (11:17)
[2016-11-08] MEDS ORDERED: APIX5TAB PO (11:18)
--- NOTE | 2016-11-08 11:28 | PCM.DC.MED ---
Discharge Summary Date of Service November 08, 2016 Dates of Hospitalization Date of Hospital Admission November 06, 2016 at 02:30 Date of Discharge: November 08, 2016 Providers: Admitting Physician: Sandip Barros MD Primary Care Physician: Lawrence Garcia DO Attending Physician: Sandip Barros MD Diagnosis at Time of Discharge Diagnosis at Time of Discharge Atrial fibrillation with rapid ventricular response; acute systolic congestive heart failure Procedures XRay, CTs & MRIs X-RAY CHEST ONE VIEW, PORTABLE IMPRESSION: No acute cardiopulmonary disease. Dictated by: Jason Grover RRA Interpreted: Eileen Prajapati MD on 11/06/2016 at 9:03 Cardiac Echo Impression Transesophageal Echocardiogram Report Name: MARCO ADEN Date : 11/07/2016 Interpretation Summary Spontaneous contrast in LA. No thrombus is detected in the left atrial appendage. Aortic Valve: The aortic valve is trileaflet. . Invasive Procedures Date of Service: November 07, 2016 Pre Procedure Diagnosis: Atrial fibrillation with rapid ventricular response. Symptomatic. Post Procedure Diagnosis: Atrial fibrillation with successful conversion to sinus rhythm. Procedure: DC Cardioversion Findings: Successful cardioversion from atrial fibrillation to sinus rhythm. Procedure Details: After JUANCARLOS showed no left atrial and left appendage thrombus, patient received deep sedation and 200J of synchronized energy that converted his rhythm from atrial fibrillation to sinus rhythm. No complications. Post Procedure Plan: 1) Continue metoprolol succinate 2) Continue eliquis 5mg twice daily 3) Consider low dose amiodarone chronically Mary Zambrano MD . Brief History History of Present Illness (per admission note): Pt is a 56 y/o male anticoagulated on Warfarin w/ a hx of A-fib, Cardiomyopathy and diastolic heart failure, tricuspid regurgitation, COPD, HTN, presenting to the [facility] ED with increased abdominal girth and lower extremity swelling with shortness of breath. The patient is typically seen by Dr. Montilla last on 10/29, he has recently been titrating down on oral Amiodarone and Lasix. Furosemide was decreased from 40 mg by mouth daily to 20 mg daily. Patient states overall swelling had continued to get worse since then and got to a point where he was too uncomfortable and then to the ED. The patient believes his trial fibrillation is causing the majority of his symptoms including abdominal and lower extremity swelling, intermittent right sided chest pain, intermittent nausea and shortness of breath. The patient has a history of COPD and is on Symbicort daily as well as an albuterol rescue inhaler which he avoids using due to tachycardia. The patient was seen in [facility] for JUANCARLOS cardioversion on 10/10 however converted back to atrial fibrillation within 2 weeks. The patient has had significant difficulties in controlling his INR with fluctuations reported as high as an INR of 10 and lows down to subtherapeutic 1.3. The patient has had an ablative procedure in the past which resulted in 6 months of normal sinus rhythm. Hospital Course Acute on chronic failure with reduced EF, EF 45% with noted anasarca, present on admission. Improving. 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 Patient had marked echocardiographic improvement of improving to 45% subsequent to medical management. - Transesophageal echo from September 2016 showed moderately reduced left ventricular systolic function, severe biatrial enlargement transthoracic echocardiogram from August 2016 showed an EF of 45-50%. - Cardioversion of atrial fibrillation to restore atrial function - Furosemide 40 mg daily - Metoprolol titrate 100 mg at bedtime and 50 mg every morning. - Lisinopril - Spironolactone Atrial fibrillation with RVR, present on admission. Acute. - Successful T JUANCARLOS cardioversion on 11/07 - Warfarin discontinued, patient given new prescription for apixiban 5 mg BID - Coupon provided to patient Acute respiratory distress without hypoxia in the setting of severe pulmonary hypertension and COPD, present on admission. Improving. - Improved after IV diuresis and rhythm control - Continue active management of chronic systolic congestive Hypomagnesemia, present on admission. Resolved Chronic conditions: COPD - continue home dose of Symbicort Hyperlipidemia - continue home dose of atorvastatin, fenofibrate Hypertension - continue metoprolol, lisinopril, spironolactone GERD - continue home dose of omeprazole Psoriasis Nicotine dependence with ongoing cigarette smoking - cessation discussed and encouraged . Exam Vital Signs (Last) Date Time Temp Pulse Resp B/P Pulse Ox O2 Delivery O2 Flow Rate FiO2 11/08/16 11:08 36.8 80 16 93/58 93 11/08/16 08:38 Nasal Cannula 1.00 Exam General: Obese man with mild anxiety but no acute distress HEENT: sclerae anicteric, oral mucosa moist Neck: 3 cm above sternal notch JVP Chest: clear to auscultation Cardiac: S1S2, regular, no murmur Abdomen: BS normal, non-tender Extremities: 1+ edema Neuro: A&O, cranial nerves symmetric, motor strength 5/5, coordination normal Test 11/05/16 22:40 11/06/16 05:05 11/07/16 03:25 11/08/16 04:30 Activated Partial Thromboplast Time 30.5sec (22.8-33.0) D-Dimer < 0.50mg/L FEU (<0.50) Troponin T 0.010ug/L (0.0-0.011) Pro-B-Type Natriuretic Peptide 3129pg/mL (0-210) Hold Wheeler Top Tube Received (Received) Magnesium Level 2.1mg/dL (1.6-2.6) White Blood Count 5.8th/mm3 (3.8-10.1) Red Blood Count 4.59mil/mm3 (4.40-5.80) Hemoglobin 14.8g/dL (13.8-17.2) Hematocrit 43.5% (41.0-50.0) Mean Corpuscular Volume 94.8fL (81-100) Mean Corpuscular Hemoglobin 32.2pg (27.0-35.0) Mean Corpuscular Hemoglobin Concent 34.0% (32.0-37.0) Red Cell Distribution Width 14.3% (12.3-15.4) Platelet Count 175bil/L (150-400) Neutrophils (%) (Auto) 56.8% (40-74) Lymphocytes (%) (Auto) 28.2% (14-46) Monocytes (%) (Auto) 9.0% (4-12) Eosinophils (%) (Auto) 4.5% (0-5) Basophils (%) (Auto) 1.0% (0-3) Total Bilirubin 1.0mg/dL (0.0-1.2) Aspartate Amino Transf (AST/SGOT) 28U/L (0-50) Alanine Aminotransferase (ALT/SGPT) 26U/L (0-44) Alkaline Phosphatase 61U/L (25-150) Total Protein 6.7g/dL (6.4-8.4) Albumin 3.4g/dL (3.4-5.0) Prothrombin Time 17.0sec (8.1-12.5) Prothromb Time International Ratio 1.57ratio Test 11/08/16 09:25 Sodium Level 137mEq/L (134-144) Potassium Level 4.9mEq/L (3.5-5.2) Chloride Level 95mEq/L (97-108) Carbon Dioxide Level 28mmol/L (18-29) Blood Urea Nitrogen 18mg/dL (6-24) Creatinine 0.95mg/dL (0.76-1.27) Estimat Glomerular Filtration Rate 87mL/min (>59) Glucose Level 134mg/dL (60-99) Calcium Level 9.5mg/dL (8.5-10.1) Discharge Medications Discharge Medications ([immune boost Vit C]) 1 TAB PO DAILY (Reported) Amiodarone (Amiodarone) 200 Mg Tablet 200 MG PO BID x 1 week then QD (Reported) Apixaban (Eliquis) 5 Mg Tablet 5 MG PO BID Prescribed by: BETTY GUIDRY MD Atorvastatin (Lipitor) 20 Mg Tablet 20 MG PO HS (Reported) Budesonide/Formoterol 160-4.5 mcg Inh (Symbicort 160-4.5 mcg Inh) 120 Puff Inhaler 2 PUFFS INH BID (Reported) Fenofibrate (Fenofibrate) 160 Mg Tablet 160 MG PO DAILYWD (Reported) 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 Flaxseed Oil ([place]-3 Flaxseed Oil) 1,000 Mg Capsule 2,000 MG PO DAILYWM ( Reported) Furosemide (Furosemide) 40 Mg Tablet 40 MG PO DAILY Prescribed by: BETTY GUIDRY MD Lisinopril (Lisinopril) 10 Mg Tablet 10 MG PO BID (Reported) Metoprolol Tartrate (Metoprolol Tartrate) 100 Mg Tablet 100 MG PO HS Prescribed by: BETTY GUIDRY MD Metoprolol Tartrate (Metoprolol Tartrate) 50 Mg Tablet 50 MG PO DAILY Prescribed by: BETTY GUIDRY MD Multivitamin (Once Daily) 1 Each Tablet 1 TAB PO DAILY (Reported) Omeprazole (Omeprazole) 20 Mg Tablet.dr 20 MG PO QAM (Reported) Spironolactone (Spironolactone) 25 Mg Tablet 25 MG PO DAILY (Reported) As needed Albuterol HFA (Proair HFA) 8.5 Gm Hfa.aer.ad 2 PUFFS INHALATION q4-6 hours PRN PRN For Shortness of Breath (Reported) Ipratropium/Albuterol Sulfate (Iprat-Albut 0.5-3(2.5) mg/3 mL Inhalant Soln) 3 Ml Ampul.neb 3 ML IH Q6 PRN PRN For Wheezing (Reported) Additional med instructions Add additional afternoon dose of lasix 40mg for 5-pound weight gain from baseline, and stop Lasix 40mg for 5-pound weight loss from baseline, until your weight returns to baseline then resume Lasix. Continue with amiodarone as per your previous schedule. Metoprolol doses have been changed to 100 at night and 50 in the morning. . Followup Plan Disposition: Home Follow-up plan Contact cardiology clinic for hospitalization follow-up appointment with [facility] Discharge Diet: Heart Healthy Discharge Activity: Limited until seen by PCP Patient Instructions Low-sodium diet with regular monitoring of your body weight. Follow-up Provider: Lawrence Garcia DO Follow-up with PCP in: 1 week Provider: Inés Montilla MD Time spent 40 minutes copies to: Lawrence Garcia DO; Inés Montilla MD, Jeffrey W MD November 08, 2016 11:28
--- NOTE | 2016-11-08 12:09 | NUR ---
discharge Discharge instructions reviewed at bedside, pt verbalizes understanding of. Denies pain. Vital signs stable. IV d/c. Pt escorted to private vehicle.
[2016-11-09] MEDS ORDERED: MeTOProlol XL 50 mg ER24 Tablet PO SCH (08:30)
--- NOTE | 2016-11-14 09:57 | NUR ---
Follow up phone for CHF patients Date: 11/14 Time: 09 Information Discussed: pt has scale at home and weights have been consistent (within 1lb from dry weight) denies any s/s r/t chf exacerbation; no sob, edema, cp has no questions re: discharge orders or medications has follow up with PCP and [facility] second week of november Questions patient had: none
== END 2016-11-08 12:45 | disposition home or self-care (01) | DRG 308 ==
LOC: SED 21:50 → PCC 11-06 02:30
PROVIDERS: ADMIT Hospitalist; ATTEND Hospitalist
PROC: B245ZZ4 Ultrasonography of Left Heart, Transesophageal (ICD-10-PCS; principal; 2016-11-07)
PROC: 5A2204Z Restoration of Cardiac Rhythm, Single (ICD-10-PCS; 2016-11-07)
PROC: 3E0DXRZ Introduction of Antiarrhythmic into Mouth and Pharynx, External Approach (ICD-10-PCS; 2016-11-08)
DX: I48.1 Persistent atrial fibrillation (principal); I50.33 Acute on chronic diastolic (congestive) heart failure; I07.1 Rheumatic tricuspid insufficiency; I10 Essential (primary) hypertension; I42.9 Cardiomyopathy, unspecified; I27.2 Other secondary pulmonary hypertension; J44.9 Chronic obstructive pulmonary disease, unspecified; E78.5 Hyperlipidemia, unspecified; F17.210 Nicotine dependence, cigarettes, uncomplicated; L40.9 Psoriasis, unspecified; E83.42 Hypomagnesemia; Z79.01 Long term (current) use of anticoagulants; Z79.51 Long term (current) use of inhaled steroids

== ENCOUNTER 2017-02-27 18:29 | Inpatient (IN) | payer OTHER ==
[~2017-02-27] VITALS: Ht 182.9 cm; Wt 110.9 kg
[~2017-02-27 18:29] MED LIST changes: -AMIO400T4 PO; +APIX5TAB PO; -FURO-128 PO; +FURO40TA4 PO; -METO-272 PO; +METO100T3 PO; +METO50TA3 PO; -WARF2.5T82 PO; +[UNRECOGNIZED DRUG - OTHER] PO
[2017-02-27 18:40] VITALS: BP 94/61; PULSE 90; RESP 16; O2SAT 95
[2017-02-27 19:02] LABS: BASOPHILS % (AUTO) 0.7 % (0-3); EOSINOPHILS % (AUTO) 3.8 % (0-5); MONOCYTES % (AUTO) 7.3 % (4-12); Mean Corpuscular Hemoglobin 32.9 pg (27.0-35.0); Mean Corpuscular Volume 96.1 fL (81-100); NEUTROPHILS % (AUTO) 67.8 % (40-74); Platelet Count 226 bil/L (150-400)
[2017-02-27 19:29] LABS: TROPONIN T < 0.010 ug/L (0.0-0.011)
[2017-02-27 19:36] LABS: Magnesium 1.8 mg/dL (1.6-2.6)
--- NOTE | 2017-02-27 21:45 | ED.REPORT ---
HPI-General Illness Date of Service Feb 27, 2017 ED Provider: Moshe Crouch MD The pt is a 56 y/o male with a hx of A-fib (on Eliquis), CHF, HTN, high cholesterol, and COPD who presents to the ED due to abnormal routine labs that were drawn yesterday. He has a high BUN and creatinine. He came to the ED as per Dr. Montilla's advise to rule out kidney failure. He denies flank pain, abdominal pain, bladder fullness, urinary retention and any other urinary problems. 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 Flaxseed Oil ([place]-3 Flaxseed Oil) 1,000 Mg Capsule 2,000 MG PO DAILYWM Furosemide (Furosemide) 40 Mg Tablet 40 MG PO DAILY Lisinopril (Lisinopril) 10 Mg Tablet 10 MG PO BID Metoprolol Tartrate (Metoprolol Tartrate) 100 Mg Tablet 100 MG PO HS Metoprolol Tartrate (Metoprolol Tartrate) 50 Mg Tablet 50 MG PO DAILY Multivitamin (Once Daily) 1 Each Tablet 1 TAB PO DAILY Omeprazole (Omeprazole) 20 Mg Tablet.dr 20 MG PO QAM Spironolactone (Spironolactone) 25 Mg Tablet 25 MG PO DAILY Scheduled PRN Albuterol HFA (Proair HFA) 8.5 Gm Hfa.aer.ad 2 PUFFS INHALATION q4-6 hours PRN PRN For Shortness of Breath General Time Seen by MD: 21:40 Chief Complaint Other (abnormal lab results) Hx Obtained From: Patient Arrived By: Walk-in Sudden in Onset?: Yes Onset Occurred: Yesterday (labs drawn yesterday) Symptom Duration: Since onset Severity: Current: No pain currently Severity: Maximum: No pain Recent Healthcare: Recent doctor visit Past Medical History Past Medical History 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 Patient had marked echocardiographic improvement if improving to 45% subsequent to medical management. Hyperlipidemia Atrial fibrillation - On Warfarin Tricuspid regurgitation COPD Chronic heart failure with Cardiomyopathy Psoriasis GERD Reports: COPD, Congestive heart failure, Hypertension Past Surgical History Hip ORIF surgery Ablation procedure Family History Father has dementia, Parkinson and Hypertension Mother is Diabetic and Coronary artery disease Smoking History Current Every Day Smoker Social History Alcohol Use: "Social" Drug Use: Denies drug use Ambulatory Status Independent Review of Systems Reports: abnormal lab results Denies: urinary retention Denies: bladder fullness Full Review of Systems GI: Denies: Abdominal pain Male: Denies Dysuria, Denies Flank pain, Denies Urinary frequency, Denies Urinary urgency, Denies Urination decreased, Denies Urination increased Complete sys rev & neg: except as marked. Physical Exam Vital Signs Vital Signs Date Time Temp Pulse Resp B/P Pulse Ox O2 Delivery O2 Flow Rate FiO2 02/27/17 23:09 36.8 83 16 87/43 93 Room Air 02/27/17 18:40 36.5 90 16 94/61 95 Room Air Initial VS: Reviewed, Vital signs abnormal Head / Eyes: Atraumatic, Normocephalic Neck: Supple, Non-tender, Full range of motion Respiratory: Breath sounds normal, Clear to auscultation, No respiratory distress Extremities: Vascular intact, Neuro intact, No swelling, No tenderness Skin: Warm, Dry, No cyanosis Neurologic: Alert, Oriented, Nonfocal Cardiovascular: Heart rate NL, Regular rhythm, Heart sounds NL, No gallop, No murmurs, No rubs No edema Abdomen: Atraumatic, Soft, Non-tender, No guarding, No rebound, BS normoactive , No hernia, No palpable mass No suprapubic fullness Back: Atraumatic, Inspection NL, Full range of motion, Painless range of motion , No CVA tenderness Interpretation & Diagnostics Lab Results Interpretation Result Diagram: 02/27/17 1856 02/27/17 1856 Test 02/27/17 00:00 02/27/17 18:56 02/27/17 21:35 02/27/17 23:43 Total Creatine Kinase 205U/L (21-232) White Blood Count 8.5th/mm3 (3.8-10.1) Red Blood Count 3.89mil/mm3 (4.40-5.80) Hemoglobin 12.8g/dL (13.8-17.2) Hematocrit 37.4% (41.0-50.0) Mean Corpuscular Volume 96.1fL (81-100) Mean Corpuscular Hemoglobin 32.9pg (27.0-35.0) Mean Corpuscular Hemoglobin Concent 34.2% (32.0-37.0) Red Cell Distribution Width 14.2% (12.3-15.4) Platelet Count 226bil/L (150-400) Neutrophils (%) (Auto) 67.8% (40-74) Lymphocytes (%) (Auto) 18.3% (14-46) Monocytes (%) (Auto) 7.3% (4-12) Eosinophils (%) (Auto) 3.8% (0-5) Basophils (%) (Auto) 0.7% (0-3) Sodium Level 136mEq/L (134-144) Potassium Level 4.7mEq/L (3.5-5.2) Chloride Level 94mEq/L (97-108) Carbon Dioxide Level 21mmol/L (18-29) Blood Urea Nitrogen 71mg/dL (6-24) Creatinine 3.59mg/dL (0.76-1.27) Estimat Glomerular Filtration Rate 19mL/min (>59) Glucose Level 122mg/dL (60-99) Calcium Level 9.0mg/dL (8.5-10.1) Magnesium Level 1.8mg/dL (1.6-2.6) Total Bilirubin 0.4mg/dL (0.0-1.2) Aspartate Amino Transf (AST/SGOT) 36U/L (0-50) Alanine Aminotransferase (ALT/SGPT) 23U/L (0-44) Alkaline Phosphatase 53U/L (25-150) Troponin T < 0.010ug/L (0.0-0.011) Pro-B-Type Natriuretic Peptide 670.2pg/mL (0-210) Total Protein 7.5g/dL (6.4-8.4) Albumin 4.1g/dL (3.4-5.0) Hold Urine Received (Received) Hold Purple Top Tube Received (Received) Hold Blue Top Tube Received (Received) Hold Red Top Tube Received (Received) Hold [place] Top Tube Received (Received) Hold [place] Top Tube Received (Received) Lab Results Interpretation: Acute kidney injury ECG Interpretation ECG Interpretation: Normal sinus rhythm. Rate 85. Prolonged QT interval. Time: 21:28 Interpreted by: ED physician CT Abd / Pelvis Interpretation Cholelithiasis. Signed by Dr. Asaf Drummond 02/27/17 22:41 Study type: Abdominal CT no contrast Interpretation / Wet Read by: Interpret - Radiologist Re-Eval/Medical Decision Med Decision/Clinical Course 56-year-old male with history of hypertension and atrial fibrillation was found to have elevated BUN/creatinine on routine outpatient labs likely related to lisinopril and diuretics. CT KUB showed no anatomic abnormalities. He also has QT prolongation likely related to his amiodarone. He is also been hypotensive. He was given 500 mL of normal saline to be followed by 80 mL per hour normal saline per Dr. Donaldson. He will be admitted to the hospitalist service , Dr. Barros. Source of Hx: Old records Time of Eval: 21:45 Re-Evaluation/Progress Note: Discussed the possibility of admission based on lab and imaging results. Pt understands and agrees with the plan. All questions answered. Time of Eval: 00:42 Re-Evaluation/Progress Note: Rechecked pt. Discussed lab results, imaging results,diagnosis and plan to admit. Pt understands and agrees with the plan for admission. All questions addressed. Consultation #1: Referral / Consult Name: Venkat Villalobos MD Consulted With: Nephrology Requested Call at: 23:02 Call Returned at: 23:05 City Weighmaster: Will see patient, Agrees with eval, Agrees with plan Note: Recommends chest X-ray, holding lisinopril and diuretics. Also recommends hydration with 80cc/hr saline. Dr. Donaldson will consult. Consultation #2: Referral / Consult Name: Sandip Barros MD Consulted With: Hospitalist Requested Call at: 23:11 Call Returned at: 23:17 City Weighmaster: Will see patient, Agrees with eval, Agrees with plan, Accepts admit Counseled Regarding: Diagnosis, Lab results, Need for admission Discharge & Departure Primary Impression: ARF (acute renal failure) Acute renal failure type: unspecified Qualified Code: N17.9 - Acute kidney failure, unspecified Additional Impression: QT prolongation Disposition: ADMITTED TO HOSPITAL Referrals: Lawrence Garcia DO (PCP) Scribe Attestation Portions of this note were transcribed by Danielle Umanzor. I,, personally performed the history,physical exam and medical decision-making;I reviewed and confirmed the accuracy of the information in the transcribed note. Signed by Thanh Jensen. 02/27/17 copies to: Lawrence Garcia Howard L MD Feb 27, 2017 21:45 Danielle Umanzor Feb 27, 2017 21:53
[2017-02-27 23:09] VITALS: BP 87/43; PULSE 83; RESP 16; O2SAT 93
[2017-02-27] MEDS ORDERED: 0.9% Sodium Chloride 500 ML IV ONE (23:10)
[2017-02-27] MEDS ORDERED: 0.9% Sodium Chloride 1,000 ML IV SCH (23:18)
[2017-02-27] MEDS ORDERED: Polyethylene Glycol (PEG) 17 Gm Powder PO PRN (23:20)
[2017-02-27] MEDS ORDERED: Alum-Mag Hydrox-Simeth 30 mL Suspension PO PRN (23:20)
[2017-02-27] MEDS ORDERED: Ondansetron 2 mg/mL 2 mL Inj IVPUSH PRN (23:20)
[2017-02-28] VITALS (12 sets, daily range): BP systolic 92–116; BP diastolic 49–72; PULSE 89–104; RESP 18–23; O2SAT 93–95
[2017-02-28] MEDS ORDERED: Heparin 5,000 Unit/mL Inj SUBQ SCH (00:30)
--- NOTE | 2017-02-28 01:04 | PCM.HPMED ---
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 Montilla's office after they received outpatient blood work indicating the patient had acute kidney injury. On interview the patient denies shortness of breath, chest pain, decreased exertional capacity, flank pain, dysuria, fever, chills, difficulty urinating, or precipitous drop in urination. All other review systems are negative as well Patient states he has never had kidney injury before. Patient states that he takes his home medications as instructed. Patient lab work done as a pre- clinic visit workup with cardiology. Denies alcohol use, IV drug abuse, methamphetamines or other recreational drugs. Works for a [employer] in [facility]. In the emergency department the patient was given 500 ml of normal saline. CT of the abdomen verbally reported cholelithiasis only. 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 Flaxseed Oil ([place]-3 Flaxseed Oil) 1,000 Mg Capsule 2,000 MG PO DAILYWM Furosemide (Furosemide) 40 Mg Tablet 40 MG PO DAILY Lisinopril (Lisinopril) 10 Mg Tablet 10 MG PO BID Metoprolol Tartrate (Metoprolol Tartrate) 100 Mg Tablet 100 MG PO HS Metoprolol Tartrate (Metoprolol Tartrate) 50 Mg Tablet 50 MG PO DAILY Multivitamin (Once Daily) 1 Each Tablet 1 TAB PO DAILY Omeprazole (Omeprazole) 20 Mg Tablet.dr 20 MG PO QAM Spironolactone (Spironolactone) 25 Mg Tablet 25 MG PO DAILY Albuterol HFA (Proair HFA) 8.5 Gm Hfa.aer.ad 2 PUFFS INHALATION q4-6 hours PRN PRN For Shortness of Breath Ipratropium/Albuterol Sulfate (Iprat-Albut 0.5-3(2.5) mg/3 mL Inhalant Soln) 3 Ml Ampul.neb 3 ML IH Q6 PRN PRN For Wheezing PMH History of congestive heart failure with EF as low as 20% in May 2013, 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 Patient had marked echocardiographic improvement if improving to 45% subsequent to medical management. Hyperlipidemia Atrial fibrillation - On Warfarin Tricuspid regurgitation COPD Chronic heart failure with Cardiomyopathy Psoriasis GERD Reports: COPD, Congestive heart failure, Hypertension Surgical History Hip ORIF surgery Ablation procedure Family History Father has dementia, Parkinson and Hypertension Mother is Diabetic and Coronary artery disease Social History Hx Alcohol Use: Yes (drinks socially) Hx Substance Use: No Hx Tobacco Use: Yes Smoking Status: Current Every Day Smoker Exam Vital Signs Vital Sign - Last Date Time Temp Pulse Resp B/P Pulse Ox O2 Delivery O2 Flow Rate FiO2 02/28/17 00:26 93 20 105/49 95 Room Air 02/27/17 23:09 36.8 Intake and Output 02/27/17 02/27/17 02/28/17 Cumulative From/Thru 15:00 23:00 07:00 02/27/17 18:40 - 02/28/17 00:53 Intake Total 1000 ml 1000 ml Balance 1000 ml 1000 ml Intake IV Total 1000 ml 1000 ml Exam General: Generally healthy-appearing male in no acute distress HEENT: PERRLA, EOMI, nonicteric, membranes dry; very poor dentition Lymph: No lymphadenopathy Cardio: Regular rate and rhythm no murmurs rubs or gallops Respiratory: CTA bilaterally, no wheezes, no crackles Abdomen: Soft, positive bowel sounds, nontender, nondistended Extremities: Trace edema, 5/5 strength, sensation intact Psych: Appropriate mood and affect Neuro: CN II through XII grossly intact, sensation intact throughout Skin: No rash Lab and Diagnostics Result Diagram: 02/27/17185502/27/171855 X-Rays, CTs and MRIs CT abdomen; read pending -Night read demonstrated cholelithiasis Assessment & Plan 56-year-old male with a history of CHF, A. fib on Eliquis, hyperlipidemia, and hypertension who presents emergency department due to acute kidney injury with creatinine of 3.56. Acute kidney injury with AG second to BUN; present on admission; ongoing -Patient is completely asymptomatic and reports no symptoms of heart failure including shortness of breath, low exertional capacity, or orthopnea -Could be due to pre-renal azotemia (ratio close to 20/1) with dry membranes vs intrinsic injury; less likely obstructive -UA, CK, C3, C4 ordered -Will hold statin until CK is returned -SPEP ordered -Urine eosinophils -US renal ordered -500ml NS given in ED -Additional 500ml given on admit -100ml/hr given overnight with stop time at 1000 am -Consider nephrology consult -Held home diuretics Chronic Systolic heart failure with tachycardia induced cardiomyopathy; present on admission; ongoing -Reviewed outpatient cardiology notes -No signs of fluid overload with only trace edema and no crackles on auscultation; no jvd -Pt on metoprolol, lisinopril, atorvastatin, lasix, and spironolactone -EF 20% in May 2013; last Echo shows EF 40-45% -Continue metoprolol; will hold lisinopril and diuretics for now Chronic COPD; present on admission; ongoing -Pt states his breathing has been doing well -On Symbicort and proair at home; also outpatient med rec has duonebs when needed -Conitnue home medications Elevated transaminases; present on admission; ongoing -Appears to be in alcohol induced ratio but patient denies ongoing EtOH -Previous CHF was suspicious for EtOH -Will check Hepatitis panel Hypertension-stable on admit; will continue home meds as above Hyperlipidemia-will hold on statin as above Atrial fibrillation- rate controlled on metoprolol and anticoag with Eliquis GERD-famotidine 20mg daily Disposition: Patient is being admitted to inpatient status with expected length of stay greater than two midnights due to to severity of presentation, duration of treatment, and risks of adverse events disposition Pain Evaluation: Adequate Pain Control GI Prophylaxis: H2 christine VTE Prophylaxis: Sub-Q Heparin (Unfractionated) Resuscitation Status: CPR: Attempt Resuscitation Attending Statement The patient was seen and examined together with Dr. Pulido on 02/27 and I agree with the history, exam and plan as outlined in the note above. Dany Pulido DO Feb 28, 2017 01:04 Sandip Barros MD Feb 28, 2017 05:27
[2017-02-28] MEDS ORDERED: 0.9% Sodium Chloride 1,000 ML IV SCH (02:27)
[2017-02-28] MEDS ORDERED: 0.9% Sodium Chloride 500 ML IV ONE (02:30)
[2017-02-28 02:31] LABS: INR 1.05 ratio
[2017-02-28] MEDS ORDERED: Albuterol 2.5 mg/3 mL Inhalation Solution NEB PRN (02:37)
--- NOTE | 2017-02-28 05:46 | NUR ---
Admit Pt arrived on the floor due to abnormal lab results on check up. Denies chest pain, sob, n/v or abd discomfort. IVF NS 500ml bolus administered as ordered. Continue ns running 100ml/hr per MD. Telemetry monitoring noted no abnormal ektopy. Continuing care.
[2017-02-28 05:51] LABS: BASOPHILS % (AUTO) 0.4 % (0-3); EOSINOPHILS % (AUTO) 2.9 % (0-5); MONOCYTES % (AUTO) 7.3 % (4-12); Mean Corpuscular Hemoglobin 33.4 pg (27.0-35.0); Mean Corpuscular Volume 98.5 fL (81-100); NEUTROPHILS % (AUTO) 74.5 % (40-74); Platelet Count 186 bil/L (150-400)
--- NOTE | 2017-02-28 09:20 | DRSVH ---
PROCEDURE: CT KUB ([id number]) INDICATIONS: Acute renal failure TECHNIQUE: Noncontrast 5 mm thick sections acquired from the diaphragms to the symphysis. 5 mm thick coronal an d sagittal reformats were then performed. For radiation dose reduction, the following was used: aut omated exposure control, adjustment of mA and/or kV according to patient size. COMPARISON: None. FINDINGS: Image quality: Excellent. Lung bases: Lung bases are clear. Heart size is normal. Urinary system: Both kidneys are normal in size. No kidney stones. No hydronephrosis or perinephri c fat stranding. Both ureters appear non-dilated throughout their expected courses. Bladder wall th ickness is normal; no calcified bladder stones. Other solid organs: Liver and spleen are normal in size. Gallbladder contains multiple gallstones. Pancreas is normal in contours. No adrenal nodules. Peritoneum and bowel: Unenhanced bowel loops demonstrate normal wall thickness and caliber. Scattere d colonic diverticuli without evidence of diverticulosis. No free fluid or air. Appendix is normal. Nodes and vessels: No retroperitoneal or mesenteric adenopathy by size criteria. Aorta and inferior vena cava are normal in caliber. Scattered atherosclerotic calcifications involving the abdominal an d pelvic vasculature. Abdominal wall: No ventral hernias. Pelvis: No free pelvic fluid. No adenopathy. Small fat containing bilateral inguinal hernias. Bones: No suspicious bony lesions. Chronic-appearing T10 and L1 compression deformities noted. Spine degenerative disc disease and facet arthropathy. Patient is status post ORIF of a right femur fractu re. IMPRESSION: 1. No renal stone or hydronephrosis. 2. Cholelithiasis. 3. Colonic diverticulosis without evidence of diverticulitis. Dictated by: Deja Alberto MD, PhD on 02/28/2017 at 9:15 Approved by: Deja Alberto MD, PhD on 02/28/2017 at 9:18
--- NOTE | 2017-02-28 09:34 | DRSVH ---
PROCEDURE: US RENAL SONOGRAM INDICATIONS: Acute kidney insufficiency. TECHNIQUE: Real-time scanning was performed of the kidneys and bladder, with image documentation. COMPARISON: None. FINDINGS: Kidneys: Kidneys are normal in size. Right kidney measures 11.2 cm long; left kidney measures 11.7 cm long. Right renal cortical thickness is 2.2 cm; left renal cortical thickness is 1.8 cm. Renal c ortical echotexture is normal. No hydronephrosis or nephrolithiasis. No suspicious solid mass lesio ns. Bladder: Pre-void bladder volume is 28.1 mL. Post-void residual is 4.3 mL. Pre-void images demonst rate no intraluminal masses or stones. On pre-void images, right but not the left ureteral jets are noted with color Doppler interrogation. (Of note, ureteral jets may not be detectable in up to 25% o f cases due to insufficient differences in specific gravity between ureteral and bladder urine). Miscellaneous: No free pelvic fluid. IMPRESSION: No hydronephrosis or nephrolithiasis found. Prevoid bladder volume is only 28.1 cc, and therefore there is no sign of urinary retention. Dictated by: Thang Marcelino M.D. on 02/28/2017 at 9:30 Approved by: Thang Marcelino M.D. on 02/28/2017 at 9:32
[2017-02-28] MEDS: Fluticasone-Salmeterol 500-50 Inhaler INHALATION SCH ×2 (09:53→21:05)
--- NOTE | 2017-02-28 10:15 | NUR ---
B/P : Patients blood pressure this morning was 92/60. per Hand Bookbinder patients Metoprolol and Amiodarone were held due to his low blood pressure.
--- NOTE | 2017-02-28 12:02 | NUR ---
Social Work-initial assessment: Data:See initial assessment. Pt is a 56 y/o male who was admitted on 02/28/17 for ARF per H&P. Pt's insurance is [employer] and PCP is Lawrence Garcia DO. EMR Reviewed. SW met with pt at bedside, SW role explained. Pt is alert and oriented x3. Pt resides at home with his where he remains independent with ADLs. Pt drives and does not use any DME. Pt has no HH or SNF history. Pt has no group home care insurance or VA benefits. SW discussed DPOA/ advanced directive, pt declines any information. No concerns noted around pt's capacity for self care from RN or MD. SW provided pt with discharge planning checklist and encouraged pt to call with any questions, phone number provided on white board in room. No anticipated discharge needs. SW will continue to follow if needs arise. Assessment:Pt who is independent at baseline. Plan:Pt to discharge home when medically stable via POV. No anticipated discharge needs. SW will continue to follow if needs arise. LEEROY Rodriguez Addendum: 02/28/17 at 1205 by YANDEL BRITTON SS Amended: Links added.
--- NOTE | 2017-02-28 15:02 | CONS ---
[address] [address] CONSULTATION REPORT PATIENT: MARCO ADEN : 1960 MR#: [id number] ADMIT: 02/28/2017 JOB ID: [id number] DATE OF SERVICE: 02/28/2017 NEPHROLOGY CONSULTATION: REQUESTING PHYSICIAN: Sandip Barros MD REASON FOR CONSULTATION: Management of acute kidney injury. CHIEF COMPLAINT: Abnormal kidney blood work. HISTORY OF PRESENT ILLNESS: This is a 56-year-old male with significant past medical history of chronic atrial fibrillation, atrial flutter status post atrial flutter ablation, cardioversion, tachycardia-induced cardiomyopathy, who was instructed to come to the hospital due to abnormal kidney function test. The patient had outpatient blood work done on February 26, 2017, which revealed a creatinine of 3.67, potassium of 5.2, his baseline serum creatinine was 0.8-1.0. The patient reported that there was no new medication prescribed over the past two months. He has been taking lisinopril, furosemide, spironolactone, amiodarone, metoprolol, and Eliquis prescribed by his medical concierge. The patient reports no history of nausea, vomiting, diarrhea, fever, or chills. He reports no history of chest pain or shortness of breath. He denies history of dysuria or hematuria. He has not had history of acute kidney injury in the past. He denied history of vasculitis or kidney stones. The patient does not use any NSAIDs. He came to the emergency department for further investigation. The initial blood work showed a creatinine of 3.59, potassium of 4.7. His initial blood pressure was 94/60. He received a normal saline bolus of 500 mL yesterday. Currently he is on sodium chloride drip at 100 mL/hour. According to the outpatient record his blood pressure has ranged between 100-130 over 60-80. PAST MEDICAL HISTORY: 1. Tachycardia induced cardiomyopathy. 2. Heart failure with reduced ejection fraction. Ejection fraction increased from 20%-35% to 45%-50% based on echocardiogram in February 2017. 3. Atrial fibrillation status post multiple cardioversion. 4. Atrial flutter, status post ablation in March 2016. 5. Tobacco abuse. 6. Chronic COPD. 7. Chronic GERD. 8. Obesity. 9. Dyslipidemia. PAST SURGICAL HISTORY: Status post multiple cardioversions and atrial fibrillation. Hip surgery. FAMILY HISTORY: Positive for coronary artery disease in the family. Dyslipidemia. There is no family history of kidney disease. MEDICATIONS: Lisinopril, spironolactone, furosemide, metoprolol, omeprazole, flaxseed oil, Symbicort, atorvastatin, Eliquis, amiodarone, albuterol. REVIEW OF SYSTEMS: Constitutional: No fever, no chills. HEENT: No headaches. No blurred vision. Cardiovascular: No chest pain. No shortness of breath. Pulmonary: No cough. No hemoptysis. GI: No nausea. No vomiting. : No dysuria. No hematuria. Skin: No rashes. No excoriation. Neurology: No neurological deficit. : No dysuria. No hematuria. Endocrine: No polyuria or polydipsia. PHYSICAL EXAMINATION: Vitals: Temperature 36.8, pulse 91, respiratory rate 23, blood pressure 100/53. General appearance: Awake, alert, oriented x3. In no acute distress. HEENT: Atraumatic. Moist mucous membranes. PERRLA. Anicteric. No pallor. No icteric sclerae. No jaundice. No JVD. Heart: Regular rhythm. Normal S1 and S2. No murmur, rubs, or gallops. Lungs: Decreased breath sound at bases. No wheezing. No rhonchi. Prolonged expiratory phase. Abdomen: Soft, obese. Active bowel sounds. Nontender. Nondistended. No hepatosplenomegaly. Extremities: No edema, cyanosis, or clubbing of fingers. STUDIES: Echocardiogram on February 19, 2017, showed ejection fraction of 45% to 50%. Kidney sonogram showed no hydronephrosis or nephrolithiasis. Pre-void bladder volume is 28 mL. Postvoid residual is 4.3 mL. Right kidney measures 11.2, left kidney measures 11.7 cm. Sodium 142, potassium 4.6, chloride 107, bicarb 22, BUN 61, creatinine 2.63, calcium 8.2, glucose 118. ASSESSMENT: 1. Acute kidney injury secondary to prerenal azotemia related to over-diuresis, hypotension, and CONSTANCE blockade. His kidney function has improved after IV fluid administered overnight. I would like to obtain urinalysis. Continue to hold diuretics and lisinopril. Continue metoprolol but lower dose at 25 mg twice a day and titrate up when he is more stable. 2. Chronic systolic heart failure secondary to tachycardia-induced cardiomyopathy. 3. Atrial fibrillation status post multiple cardioversions. 4. Atrial flutter, status post ablations. 5. Chronic obstructive pulmonary disease (COPD) with history of tobacco abuse. 6. Hypertension, now hypotensive. 7. Dyslipidemia. 8. Gastroesophageal reflux disease (GERD). PLAN: 1. Continue current IV fluid until the current bag is finished. 2. Continue to hold diuretics. 3. Hold lisinopril. 4. Continue low-dose metoprolol 25 mg twice a day. 5. Repeat UA. 6. Repeat kidney function tests in the morning. Thank you for allowing me to participate in the care of your patient. We will monitor along with you. MTDD
--- NOTE | 2017-02-28 18:59 | NUR ---
Activity: Patient has been up ad nikolai in his room. He has been using his urinal independently at his bedside. He has had an uneventful day.
[2017-03-01 00:09] VITALS: BP 107/66; PULSE 86; RESP 20; O2SAT 94
[2017-03-01 03:09] LABS: Hepatitis A Antibody IgM Negative (Negative); Hepatitis B Core Antibody IgM Negative (Negative)
[2017-03-01 04:39] VITALS: BP 118/62; PULSE 88; RESP 18; O2SAT 95
[2017-03-01 05:47] VITALS: PULSE 90
[2017-03-01] MEDS: Fluticasone-Salmeterol 500-50 Inhaler INHALATION SCH (07:54)
[2017-03-01 08:00] VITALS: PULSE 91
[2017-03-01 09:14] VITALS: BP 110/64; PULSE 96; RESP 18; O2SAT 93
--- NOTE | 2017-03-01 09:45 | PCM.DIMED ---
Discharge Instructions Date of Service Mar 01, 2017 Dates of Hospitalization Feb 28, 2017 at 00:17 Discharge Diagnosis Discharge Diagnosis acute dx 1. Acute kidney injury secondary to prerenal azotemia related to over-diuresis, hypotension, and CONSTANCE blockade. 2. Chronic systolic heart failure secondary to tachycardia-induced cardiomyopathy. 3. Atrial fibrillation status post multiple cardioversions. 4. Atrial flutter, status post ablations. 5. Chronic obstructive pulmonary disease (COPD) with history of tobacco abuse. 6. Hypertension, now hypotensive. 7. Dyslipidemia. 8. Gastroesophageal reflux disease (GERD). Medication Instructions Additional med instructions Please stop taking furosemide until you see your doctor Please continue to take Spironolactone, Lisinopril 5mg daily(from 10mg twice a day) Please adjust your metoprolol to 25mg twice a day. Please note the further medication adjustment should be made by , If you notice more swelling on your body, increasing weight, you can start Furosemide cautiously, Please contact your doctor Diet Discharge Diet: Low fat, Low Sodium Activity Discharge Activity: No restrictions Patient Instructions Patient Instructions You were hospitalized with decreased kidney function, likely due to water pills. Your kidney function improved greatly with IV fluid. Please follow medication instruction as above Follow-up Provider: Bethel Mac PA-C Follow-up with PCP in: 1 week Provider: Inés Montilla MD Follow-up in: 2 weeks Adrianna Jack MD Mar 01, 2017 09:45
--- NOTE | 2017-03-01 10:48 | PCM.PNNEPH ---
Subjective Date of Service Mar 01, 2017 Subjective There was no acute issue overnight. He is doing well. Blood pressure has improved. Serum creatinine has trended. Exam Vital Signs Vital Sign - Last Date Time Temp Pulse Resp B/P Pulse Ox O2 Delivery O2 Flow Rate FiO2 03/01/17 09:14 36.7 96 18 110/64 93 Room Air Intake and Output 02/28/17 02/28/17 03/01/17 Cumulative From/Thru 15:00 23:00 07:00 02/27/17 18:40 - 03/01/17 06:06 Intake Total 2882 ml 900 ml 6005 ml Output Total 1625 ml 1300 ml 3275 ml Balance 1257 ml -400 ml 2730 ml Intake Oral 1632 ml 900 ml 2886 ml IV Total 1250 ml 3119 ml Output Urine Total 1625 ml 1300 ml 3275 ml # Bowel Movements 0 0 2 Exam General appearance: Awake, alert, oriented x3. In no acute distress. HEENT: Atraumatic. Moist mucous membranes. PERRLA. Anicteric. No pallor. No icteric sclerae. No jaundice. No JVD. Heart: Regular rhythm. Normal S1 and S2. No murmur, rubs, or gallops. Lungs: Decreased breath sound at bases. No wheezing. No rhonchi. Prolonged expiratory phase. Abdomen: Soft, obese. Active bowel sounds. Nontender. Nondistended. No hepatosplenomegaly. Extremities: No edema, cyanosis, or clubbing of fingers. Lab and Diagnostics Result Diagram: 02/28/17 0523 03/01/17 0535 X-Rays, CTs and MRIs CT abdomen; read pending -Night read demonstrated cholelithiasis Plan Impression 1. Acute kidney injury secondary to prerenal azotemia related to over- diuresis, hypotension, and RAAS blockade. 2. Chronic systolic heart failure secondary to tachycardia-induced cardiomyopathy. 3. Atrial fibrillation status post multiple cardioversions. 4. Atrial flutter, status post ablations. 5. Chronic obstructive pulmonary disease with history of tobacco abuse. 6. Hypertension, now hypotensive. 7. Dyslipidemia. 8. Gastroesophageal reflux disease. PLAN: Per renal, patient can be discharged home. Recommend to continue metoprolol 25 mg twice a day. Resume spironolactone 25 mg once a day on SaturdayMar 04. Hold furosemide for now. Resume lisinopril 5 mg once a day. Patient to weigh himself daily and check her blood pressure at least once a day. Patient to follow-up with his shaving machine operator within 1 week. Medications to be titrated up according to his shaving machine operator. Venkat Villalobos MD Mar 01, 2017 10:48
[2017-03-01] MEDS ORDERED: METO-386 PO (11:42)
[2017-03-01] MEDS ORDERED: METO25TA6 PO (11:43)
--- NOTE | 2017-03-01 13:59 | PCM.DC.MED ---
Discharge Summary Date of Service Mar 01, 2017 Dates of Hospitalization Date of Hospital Admission Feb 28, 2017 at 00:17 Date of Discharge: Mar 01, 2017 Providers: Admitting Physician: Sandip Barros MD Primary Care Physician: Lawrence Garcia DO Attending Physician: Adrianna Paz MD Diagnosis at Time of Discharge Diagnosis at Time of Discharge acute dx 1. Acute kidney injury secondary to prerenal azotemia related to over-diuresis, hypotension, and CONSTANCE blockade. 2. Chronic systolic heart failure secondary to tachycardia-induced cardiomyopathy. 3. Atrial fibrillation status post multiple cardioversions. 4. Atrial flutter, status post ablations. 5. Chronic obstructive pulmonary disease (COPD) with history of tobacco abuse. 6. Hypertension, now hypotensive. 7. Dyslipidemia. 8. Gastroesophageal reflux disease (GERD). 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 Montilla's office after they received outpatient blood work indicating the patient had acute kidney injury. On interview the patient denies shortness of breath, chest pain, decreased exertional capacity, flank pain, dysuria, fever, chills, difficulty urinating, or precipitous drop in urination. All other review systems are negative as well Patient states he has never had kidney injury before. Patient states that he takes his home medications as instructed. Patient lab work done as a pre- clinic visit workup with cardiology. Denies alcohol use, IV drug abuse, methamphetamines or other recreational drugs. Works for a [employer] in [facility]. In the emergency department the patient was given 500 ml of normal saline. CT of the abdomen verbally reported cholelithiasis only. Hospital Course 56-year-old male with a history of CHF, A. fib on Eliquis, hyperlipidemia, and hypertension who presents emergency department due to acute kidney injury with creatinine of 3.56. pt was noted to have GENESIS likely prerenal given diuretics, ACEI. lasix, Aldactone , lisinopril were held, renal function improved significantly with judicious fluid resuscitation. pt remained asymptomatic throughout hospitalization. Renal US was unremarkable. Metoprolol dose was also adjusted given low blood pressure , [id number] on admission. Plan is to start aldactone and [id number] daily from 10mg bid, decrease metoprolol to 25mg bid, close monitoring of weight, respiratory sx, perihperal edema. pt was recommended to follow up with for further adjustment of diuretics. Acute kidney injury with AG second to BUN; present on admission; ongoing -Patient is completely asymptomatic and reports no symptoms of heart failure including shortness of breath, low exertional capacity, or orthopnea -Could be due to pre-renal azotemia (ratio close to 20/1) with dry membranes vs intrinsic injury; less likely obstructive -UA, CK, C3, C4 ordered -Will hold statin until CK is returned -SPEP ordered -Urine eosinophils -US renal ordered -500ml NS given in ED -Additional 500ml given on admit -100ml/hr given overnight with stop time at 1000 am -Consider nephrology consult -Held home diuretics Chronic Systolic heart failure with tachycardia induced cardiomyopathy; present on admission; ongoing -Reviewed outpatient cardiology notes -No signs of fluid overload with only trace edema and no crackles on auscultation; no jvd -Pt on metoprolol, lisinopril, atorvastatin, lasix, and spironolactone -EF 20% in May 2013; last Echo shows EF 40-45% -Continue metoprolol; will hold lisinopril and diuretics for now Chronic COPD; present on admission; ongoing -Pt states his breathing has been doing well -On Symbicort and proair at home; also outpatient med rec has duonebs when needed -Conitnue home medications Elevated transaminases; present on admission; ongoing -Appears to be in alcohol induced ratio but patient denies ongoing EtOH -Previous CHF was suspicious for EtOH -Will check Hepatitis panel Hypertension-stable on admit; will continue home meds as above Hyperlipidemia-will hold on statin as above Atrial fibrillation- rate controlled on metoprolol and anticoag with Eliquis GERD-famotidine 20mg daily Disposition: Patient is being admitted to inpatient status with expected length of stay greater than two midnights due to to severity of presentation, duration of treatment, and risks of adverse events disposition Exam Vital Signs (Last) Date Time Temp Pulse Resp B/P Pulse Ox O2 Delivery O2 Flow Rate FiO2 03/01/17 09:14 36.7 96 18 110/64 93 Room Air Exam Patient was examined on the day of discharge Test 02/27/17 00:00 02/27/17 18:56 02/27/17 21:35 02/27/17 23:43 Total Creatine Kinase 205U/L (21-232) Magnesium Level 1.8mg/dL (1.6-2.6) Troponin T < 0.010ug/L (0.0-0.011) Pro-B-Type Natriuretic Peptide 670.2pg/mL (0-210) Hold Urine Received (Received) Hold Purple Top Tube Received (Received) Hold Blue Top Tube Received (Received) Hold Red Top Tube Received (Received) Hold [place] Top Tube Received (Received) Hold [place] Top Tube Received (Received) Test 02/28/17 02:10 02/28/17 05:23 03/01/17 05:35 Prothrombin Time 11.2sec (8.1-12.5) Prothromb Time International Ratio 1.05ratio White Blood Count 10.3th/mm3 (3.8-10.1) Red Blood Count 3.32mil/mm3 (4.40-5.80) Hemoglobin 11.1g/dL (13.8-17.2) Hematocrit 32.7% (41.0-50.0) Mean Corpuscular Volume 98.5fL (81-100) Mean Corpuscular Hemoglobin 33.4pg (27.0-35.0) Mean Corpuscular Hemoglobin Concent 33.9% (32.0-37.0) Red Cell Distribution Width 14.4% (12.3-15.4) Platelet Count 186bil/L (150-400) Neutrophils (%) (Auto) 74.5% (40-74) Lymphocytes (%) (Auto) 14.0% (14-46) Monocytes (%) (Auto) 7.3% (4-12) Eosinophils (%) (Auto) 2.9% (0-5) Basophils (%) (Auto) 0.4% (0-3) Complement C3 137mg/dL (82-167) Complement C4 23mg/dL (14-44) Hepatitis A IgM Antibody Negative (Negative) Hepatitis B Surface Antigen Negative (Negative) Hepatitis B Core IgM Antibody Negative (Negative) Hepatitis C Antibody <0.1s/co ratio (0.0-0.9) Hepatitis C Comment Comment (.) Sodium Level 140mEq/L (134-144) Potassium Level 4.5mEq/L (3.5-5.2) Chloride Level 104mEq/L (97-108) Carbon Dioxide Level 22mmol/L (18-29) Blood Urea Nitrogen 30mg/dL (6-24) Creatinine 1.44mg/dL (0.76-1.27) Estimat Glomerular Filtration Rate 54mL/min (>59) Glucose Level 121mg/dL (60-99) Calcium Level 8.4mg/dL (8.5-10.1) Total Bilirubin 0.3mg/dL (0.0-1.2) Aspartate Amino Transf (AST/SGOT) 22U/L (0-50) Alanine Aminotransferase (ALT/SGPT) 17U/L (0-44) Alkaline Phosphatase 54U/L (25-150) Total Protein 6.3g/dL (6.4-8.4) Albumin 3.7g/dL (3.4-5.0) Discharge Medications Discharge Medications ([immune boost Vit C]) 1 TAB PO DAILY (Reported) Amiodarone (Amiodarone) 200 Mg Tablet 200 MG PO BID x 1 week then QD (Reported) Apixaban (Eliquis) 5 Mg Tablet 5 MG PO BID Prescribed by: BETTY GUIDRY MD Atorvastatin (Lipitor) 20 Mg Tablet 20 MG PO HS (Reported) Budesonide/Formoterol 160-4.5 mcg Inh (Symbicort 160-4.5 mcg Inh) 120 Puff Inhaler 2 PUFFS INH BID (Reported) Fenofibrate (Fenofibrate) 160 Mg Tablet 160 MG PO DAILYWD (Reported) TAKES IN AM BC WORKS TRAY DELIVERY AIDE Flaxseed Oil ([place]-3 Flaxseed Oil) 1,000 Mg Capsule 2,000 MG PO DAILYWM ( Reported) Metoprolol Tartrate (Metoprolol Tartrate) 25 Mg Tablet 25 MG PO BID Prescribed by: ADRIANNA PAZ MD Multivitamin (Once Daily) 1 Each Tablet 1 TAB PO DAILY (Reported) Omeprazole (Omeprazole) 20 Mg Tablet.dr 20 MG PO QAM (Reported) As needed Albuterol HFA (Proair HFA) 8.5 Gm Hfa.aer.ad 2 PUFFS INHALATION q4-6 hours PRN PRN For Shortness of Breath (Reported) Additional med instructions Please stop taking furosemide until you see your doctor Please continue to take Spironolactone, Lisinopril 5mg daily(from 10mg twice a day) Please adjust your metoprolol to 25mg twice a day. Please note the further medication adjustment should be made by , If you notice more swelling on your body, increasing weight, you can start Furosemide cautiously, Please contact your doctor Followup Plan Disposition: home Discharge Diet: Low fat, Low Sodium Discharge Activity: No restrictions Patient Instructions You were hospitalized with decreased kidney function, likely due to water pills. Your kidney function improved greatly with IV fluid. Please follow medication instruction as above Follow-up Provider: Bethel Mac PA-C Follow-up with PCP in: 1 week Provider: Inés Montilla MD Follow-up in: 2 weeks Time spent 65min Adrianna Paz MD Mar 01, 2017 13:59
--- NOTE | 2017-03-01 14:56 | NUR ---
discharge paperwork reviewed, no questions at this time. pt refused ride to private car to return to private home. pt denies CP/pain/distress. pt thanks hospital staff for excellent care. belongings bagged and pt walked with to car.
== END 2017-03-01 14:56 | disposition home or self-care (01) | DRG 683 ==
LOC: SED 18:29 → MPC 02-28 00:17
PROVIDERS: ADMIT Hospitalist; ATTEND Internal Medicine
DX: N17.8 Other acute kidney failure (principal); I50.22 Chronic systolic (congestive) heart failure; I42.8 Other cardiomyopathies; I48.92 Unspecified atrial flutter; Z79.01 Long term (current) use of anticoagulants; F17.210 Nicotine dependence, cigarettes, uncomplicated; J44.9 Chronic obstructive pulmonary disease, unspecified; R74.0 Nonspecific elevation of levels of transaminase and lactic acid dehydrogenase [LDH]; I10 Essential (primary) hypertension; I48.91 Unspecified atrial fibrillation; K21.9 Gastro-esophageal reflux disease without esophagitis; R79.89 Other specified abnormal findings of blood chemistry